=== PATIENT | female | born 1985 | race Caucasian/White ===

== ENCOUNTER 2018-01-15 11:17 | Emergency (ER) | payer OTHER ==
[2018-01-15] MEDS ORDERED: SODIUM CHLORIDE 0.9% 500 ML IV STA (12:12)
--- NOTE | 2018-01-15 12:23 | ED ---
Abdominal Pain HPI - General Chief Complaint: Abdominal Pain Stated Complaint: Abd Pain, Poss Time Seen by Provider: 01/15/18 11:56 Source: patient, RN notes reviewed Mode of arrival: ambulatory Limitations: no limitations - History of Present Illness Initial Comments: This a 32-year-old female presents emergency Department chief complaint of abdominal pain. She's been having some cramping over the last week or 2 which has been worsening and she states that she occasionally has sharp stabbing pain. Patient states that nothing seems to exacerbate her symptoms or improvement. Patient denies any known fever, chills, flank pain, dysuria. She does have some urinary frequency. Denies any vaginal bleeding or vaginal discharge. She is concerned about possible as she is late on her menstrual cycle and has not taken a test at home. She states she does not use any control other than using Plan B. Patient has had 3 sections in the past and a prior cholecystectomy. Patient also complains of right-sided neck pain after she awoke this morning states it hurts when she twists or bends states he feels in the muscle. She states she was concern as she ran Internet that this could be related to internal bleeding in which brought her to the emergency department. - Related Data Previous Rx's Medication Instructions Recorded Cephalexin [Keflex] 500 mg PO Q6HR #20 cap 01/15/18 Allergies Allergy/AdvReac Type Severity Reaction Status Date / Time No Known Allergies Allergy Verified 01/15/18 11:55 Review of Systems ROS Statement: Those systems with pertinent positive or pertinent negative responses have been documented in the HPI. ROS Other: All systems not noted in ROS Statement are negative. Past Medical History Past Medical History: No Reported History Additional Past Medical History / Comment(s): CHOLECYSTITIS History of Any Multi-Drug Resistant Organisms: None Reported Past Surgical History: Section, Ear Surgery, Tonsillectomy Additional Past Surgical History / Comment(s): TUBES IN EARS Additional Past Anesthesia/Blood Transfusion Reaction / Comment(s): VOMITED WITH DEMEROL Past Psychological History: No Psychological Hx Reported Smoking Status: Current every day smoker Past Alcohol Use History: None Reported Past Drug Use History: None Reported - Past Family History Mother Family Medical History: No Reported History General Exam Limitations: no limitations General appearance: alert, in no apparent distress Head exam: Present: atraumatic, normocephalic, normal inspection ENT exam: Present: normal exam, normal oropharynx, mucous membranes moist, TM's normal bilaterally Neck exam: Present: normal inspection, tenderness (Mild over the right trapezius ), full ROM. Absent: meningismus, lymphadenopathy Respiratory exam: Present: normal lung sounds bilaterally. Absent: respiratory distress, wheezes, rales, rhonchi, stridor Cardiovascular Exam: Present: regular rate, normal rhythm, normal heart sounds. Absent: systolic murmur, diastolic murmur, rubs, gallop, clicks GI/Abdominal exam: Present: soft, tenderness (Mild to moderate suprapubic), normal bowel sounds. Absent: distended, guarding, rebound, rigid Back exam: Absent: CVA tenderness (R), CVA tenderness (L) Skin exam: Present: warm, dry, intact, normal color. Absent: rash Course Vital Signs 01/15/18 01/15/18 11:49 13:15 Temperature 98.4 F Pulse Rate 83 Respiratory 18 16 Rate Blood Pressure 121/40 O2 Sat by Pulse 98 Oximetry Medical Decision Making - Medical Decision Making 32-year-old female presented for lower abdominal pain which has been intermittent cramping. Patient's found to be this time. Patient did have ultrasound which shows a gestational sac consider blood open. Patient's hCG is 69,000 this time. Patient has no vaginal bleeding or vaginal discharge. Patient follow-up with [facility] outpatient. She does have evidence of urinary tract infection was cultured and she'll be started on Keflex. - Lab Data Result diagrams: 01/15/18 12:45 01/15/18 12:45 Lab Results 01/15/18 01/15/18 01/15/18 Range/Units 12:30 12:30 12:45 WBC (3.8-10.6) k/uL RBC (3.80-5.40) m/uL Hgb (11.4-16.0) gm/dL Hct (34.0-46.0) % MCV (80.0-100.0) fL MCH (25.0-35.0) pg MCHC (31.0-37.0) g/dL RDW (11.5-15.5) % Plt Count (150-450) k/uL Neutrophils % % Lymphocytes % % Monocytes % % Eosinophils % % Basophils % % Neutrophils # (1.3-7.7) k/uL Lymphocytes # (1.0-4.8) k/uL Monocytes # (0-1.0) k/uL Eosinophils # (0-0.7) k/uL Basophils # (0-0.2) k/uL Sodium 136 L (137-145) mmol/L Potassium 4.0 (3.5-5.1) mmol/L Chloride 104 (98-107) mmol/L Carbon Dioxide 24 (22-30) mmol/L Anion Gap 8 mmol/L BUN 9 (7-17) mg/dL Creatinine 0.50 L (0.52-1.04) mg/dL Est GFR (CKD-EPI)AfAm >90 (>60 ml/min/1.73 sqM) Est GFR (CKD-EPI)NonAf >90 (>60 ml/min/1.73 sqM) Glucose 80 (74-99) mg/dL Calcium 9.4 (8.4-10.2) mg/dL Total Bilirubin 0.6 (0.2-1.3) mg/dL AST 18 (14-36) U/L ALT 31 (9-52) U/L Alkaline Phosphatase 46 (38-126) U/L Total Protein 6.8 (6.3-8.2) g/dL Albumin 4.2 (3.5-5.0) g/dL Amylase 48 (30-110) U/L Lipase 57 (23-300) U/L HCG, Quant mIU/mL Urine Color Yellow Urine Appearance Clear (Clear) Urine pH 7.0 (5.0-8.0) Ur Specific [place] 1.019 (1.001-1.035) Urine Protein Negative (Negative) Urine Glucose (UA) Negative (Negative) Urine Ketones 1+ H (Negative) Urine Blood Negative (Negative) Urine Nitrite Positive H (Negative) Urine Bilirubin Negative (Negative) Urine Urobilinogen <2.0 (<2.0) mg/dL Ur Leukocyte Esterase Trace H (Negative) Urine RBC 1 (0-5) /hpf Urine WBC 15 H (0-5) /hpf Ur Squamous Epith Cells 3 (0-4) /hpf Amorphous Sediment Occasional H (None) /hpf Hyaline Casts 1 (0-2) /lpf Urine Mucus Few H (None) /hpf Urine HCG, Qual Detected (Not Detectd) 01/15/18 01/15/18 Range/Units 12:45 12:45 WBC 5.9 (3.8-10.6) k/uL RBC 4.47 (3.80-5.40) m/uL Hgb 13.3 (11.4-16.0) gm/dL Hct 39.5 (34.0-46.0) % MCV 88.4 (80.0-100.0) fL MCH 29.7 (25.0-35.0) pg MCHC 33.6 (31.0-37.0) g/dL RDW 12.7 (11.5-15.5) % Plt Count 245 (150-450) k/uL Neutrophils % 69 % Lymphocytes % 19 % Monocytes % 8 % Eosinophils % 2 % Basophils % 0 % Neutrophils # 4.1 (1.3-7.7) k/uL Lymphocytes # 1.1 (1.0-4.8) k/uL Monocytes # 0.5 (0-1.0) k/uL Eosinophils # 0.1 (0-0.7) k/uL Basophils # 0.0 (0-0.2) k/uL Sodium (137-145) mmol/L Potassium (3.5-5.1) mmol/L Chloride (98-107) mmol/L Carbon Dioxide (22-30) mmol/L Anion Gap mmol/L BUN (7-17) mg/dL Creatinine (0.52-1.04) mg/dL Est GFR (CKD-EPI)AfAm (>60 ml/min/1.73 sqM) Est GFR (CKD-EPI)NonAf (>60 ml/min/1.73 sqM) Glucose (74-99) mg/dL Calcium (8.4-10.2) mg/dL Total Bilirubin (0.2-1.3) mg/dL AST (14-36) U/L ALT (9-52) U/L Alkaline Phosphatase (38-126) U/L Total Protein (6.3-8.2) g/dL Albumin (3.5-5.0) g/dL Amylase (30-110) U/L Lipase (23-300) U/L HCG, Quant 87237.5 mIU/mL Urine Color Urine Appearance (Clear) Urine pH (5.0-8.0) Ur Specific [place] (1.001-1.035) Urine Protein (Negative) Urine Glucose (UA) (Negative) Urine Ketones (Negative) Urine Blood (Negative) Urine Nitrite (Negative) Urine Bilirubin (Negative) Urine Urobilinogen (<2.0) mg/dL Ur Leukocyte Esterase (Negative) Urine RBC (0-5) /hpf Urine WBC (0-5) /hpf Ur Squamous Epith Cells (0-4) /hpf Amorphous Sediment (None) /hpf Hyaline Casts (0-2) /lpf Urine Mucus (None) /hpf Urine HCG, Qual (Not Detectd) Disposition Clinical Impression: Abdominal pain, , Blighted ovum, UTI (urinary tract infection) Disposition: HOME SELF-CARE Condition: Stable Instructions: Miscarriage (ED) Additional Instructions: Please return to the Emergency Department if symptoms worsen or any other concerns. Prescriptions: Cephalexin [Keflex] 500 mg PO Q6HR #20 cap Is patient prescribed a controlled substance at d/c from ED?: No Referrals: None,Stated [Primary Care Provider] - 1-2 days Time of Disposition: 14:48
[2018-01-15 13:06] LABS: Basophils % (A) 0 %; Eosinophils # (A) 0.1 k/uL (0-0.7); Eosinophils % (A) 2 %; HCT 39.5 % (34.0-46.0); HGB 13.3 gm/dL (11.4-16.0); Lymphocytes # (A) 1.1 k/uL (1.0-4.8); Lymphocytes % (A) 19 %; MCH 29.7 pg (25.0-35.0); MCHC 33.6 g/dL (31.0-37.0); MCV 88.4 fL (80.0-100.0); Mean Platelet Volume 6.8; Monocytes # (A) 0.5 k/uL (0-1.0); Monocytes % (A) 8 %; Neutrophils # (A) 4.1 k/uL (1.3-7.7); Neutrophils % (A) 69 %; Platelet Count 245 k/uL (150-450); RBC 4.47 m/uL (3.80-5.40); RDW 12.7 % (11.5-15.5); WBC 5.9 k/uL (3.8-10.6)
[2018-01-15 13:12] LABS: Amorphous Sediment,Urine Occasional /hpf; Appearance,Urine Clear (Clear); Bilirubin,Urine Negative (Negative); Blood,Urine Negative (Negative); Color,Urine Yellow; Glucose,Urine (UA) Negative (Negative); Hyaline Casts,Urine 1 /lpf (0-2); Ketones,Urine 1+ (Negative); Leukocyte Esterase,Urine Trace (Negative); Mucus,Urine Few /hpf; Nitrite,Urine Positive (Negative); Protein,Urine Negative (Negative); RBC,Urine 1 /hpf (0-5); Specific Gravity,Urine 1.019 (1.001-1.035); Squamous Epithelial Cell,Urine 3 /hpf (0-4); Urobilinogen,Urine <2.0 mg/dL (<2.0); WBC,Urine 15 /hpf (0-5)
[2018-01-15 13:16] VITALS: RESP 16
[2018-01-15 13:41] LABS: ALT 31 U/L (9-52); AST 18 U/L (14-36); Albumin 4.2 g/dL (3.5-5.0); Alkaline Phosphatase 46 U/L (38-126); Amylase 48 U/L (30-110); Anion Gap 8 mmol/L; Blood Urea Nitrogen 9 mg/dL (7-17); Calcium 9.4 mg/dL (8.4-10.2); Carbon Dioxide 24 mmol/L (22-30); Chloride 104 mmol/L (98-107); Glucose 80 mg/dL (74-99); Lipase 57 U/L (23-300); Sodium 136 mmol/L (137-145); Total Bilirubin 0.6 mg/dL (0.2-1.3); Total Protein 6.8 g/dL (6.3-8.2)
--- NOTE | 2018-01-15 14:33 | US ---
EXAMINATION TYPE: Transabdominal DATE OF EXAM: 10/04/17 COMPARISON: NONE CLINICAL HISTORY: Pain. Hx of molar . RLQ pain. Cramping. EXAM PERFORMED: Transvaginal (TV) and Transabdominal (TA) EXAM MEASUREMENTS: GESTATIONAL AGE / DATING Dates by LMP: (7 weeks/4 days) EDC: 08/30/2018 Dates by Current Scan : ( 7 weeks/0 days) EDC: 09/03/2018 MATERNAL ANATOMY Uterus: 9.7 x 6.4 x 6.0 cm Right Ovary: 3.0 x 1.5 x 1.6 cm Left Ovary: 2.8 x 1.2 x 1.0 cm Post CDS / Adnexa: free fluid Presence of free fluid: no Presence of corpus luteal cyst: right ovarian lesion - 1.7 x 1.1 x 1.5 cm Presence of subchorionic bleed: in MIGDALIA adjacent to GS- 0.8 x 0.8 x 0.4 cm GESTATION / SURVEY MSD: 2.4 (7 weeks/0 days) Date of LMP: 11/23/2017, Beta HcG (if available): Not available at this time Intrauterine GS seen. No YS or CRL visualized. Possible subchorionic bleed seen. IMPRESSION: There is an empty gestational sac noted. Difficult to exclude small subchorionic hemorrhage. Consider blighted ovum, recommend [employer] consult.
[2018-01-15 15:00] VITALS: BP 117/66; PULSE 74; TEMP 97.6
== END 2018-01-15 15:05 | disposition home or self-care (01) ==
LOC: EC 11:17
DX: O02.0 Blighted ovum and nonhydatidiform mole (principal); O23.41 Unspecified infection of urinary tract in pregnancy, first trimester; O26.891 Other specified pregnancy related conditions, first trimester; R10.9 Unspecified abdominal pain; O99.331 Smoking (tobacco) complicating pregnancy, first trimester; F17.200 Nicotine dependence, unspecified, uncomplicated; Z3A.01 Less than 8 weeks gestation of pregnancy
CPT/HCPCS: 36415; 76801; 76817; 80053; 81001; 81025; 82150; 83690; 84702; 85025; 96360; 96361; 99284

== ENCOUNTER 2018-06-05 19:56 | Emergency (ER) | payer OTHER ==
[2018-06-05 20:19] VITALS: TEMP 98.4
[2018-06-05 21:36] LABS: Basophils % (A) 0 %; Eosinophils # (A) 0.2 k/uL (0-0.7); Eosinophils % (A) 3 %; HCT 39.9 % (34.0-46.0); HGB 12.8 gm/dL (11.4-16.0); Lymphocytes % (A) 16 %; MCH 28.7 pg (25.0-35.0); MCHC 32.1 g/dL (31.0-37.0); MCV 89.3 fL (80.0-100.0); Monocytes # (A) 0.4 k/uL (0-1.0); Monocytes % (A) 7 %; Neutrophils # (A) 4.4 k/uL (1.3-7.7); Neutrophils % (A) 72 %; Platelet Count 237 k/uL (150-450); RBC 4.47 m/uL (3.80-5.40); RDW 13.2 % (11.5-15.5)
[2018-06-05 21:40] LABS: Appearance,Urine Clear (Clear); Bilirubin,Urine Negative (Negative); Blood,Urine Moderate (Negative); Color,Urine Yellow; Glucose,Urine (UA) Negative (Negative); Hyaline Casts,Urine 1 /lpf (0-2); Ketones,Urine Negative (Negative); Leukocyte Esterase,Urine Moderate (Negative); Mucus,Urine Occasional /hpf; Nitrite,Urine Negative (Negative); Protein,Urine Trace (Negative); RBC,Urine >182 /hpf (0-5); Specific Gravity,Urine 1.024 (1.001-1.035); Squamous Epithelial Cell,Urine 1 /hpf (0-4)
[2018-06-05 21:46] LABS: ALT 24 U/L (9-52); AST 15 U/L (14-36); Alkaline Phosphatase 57 U/L (38-126); Anion Gap 9 mmol/L; Blood Urea Nitrogen 15 mg/dL (7-17); Carbon Dioxide 25 mmol/L (22-30); Chloride 108 mmol/L (98-107); Glucose 80 mg/dL (74-99); Potassium 4.2 mmol/L (3.5-5.1); Sodium 142 mmol/L (137-145); Total Bilirubin 0.2 mg/dL (0.2-1.3); Total Protein 6.8 g/dL (6.3-8.2)
[2018-06-05] MEDS ORDERED: CEPHALEXIN 500MG STARTER PACK 4 CAP BTL PO STA (22:04)
--- NOTE | 2018-06-05 22:04 | ED ---
Female Urogenital HPI - General Chief complaint: Vaginal Bleeding Stated complaint: blighted ovum Time Seen by Provider: 06/05/18 20:43 Source: patient Mode of arrival: ambulatory Limitations: no limitations - History of Present Illness Initial comments: 33yo female with no PMH presenting today for cc of urgency, frequency and dysuria. Pt states that these symptoms began yesterday, she felt as though she had a UTI as it was indentical to when she has had one in the past. Pt denies flank/back pain, nausea, vomiting,fever, chills. Pt states she did notice she had blood/small clots in toilet yesterday which she thought were fromher urtehtra however she started her menses today and is now unsure if it was her period that had causes the blood the day prior. REmainder of ROS (-) pt denies abdominal pain. Admits to mild pelvic cramping that she states is consistent with normal menstrual symtptoms. Pt concerned about UTI, presented for evaluation. Upon arrival pt afebrile, well appearing. Last Menstrual Period: 06/05/18 - Related Data Previous Rx's Medication Instructions Recorded Cephalexin [Keflex] 500 mg PO Q12HR 5 Days #10 cap 06/05/18 Allergies Allergy/AdvReac Type Severity Reaction Status Date / Time No Known Allergies Allergy Verified 06/05/18 21:28 Review of Systems ROS Statement: Those systems with pertinent positive or pertinent negative responses have been documented in the HPI. ROS Other: All systems not noted in ROS Statement are negative. Constitutional: Denies: fever, chills ENT: Denies: ear pain, throat pain Respiratory: Denies: cough, dyspnea, wheezes Cardiovascular: Denies: chest pain Gastrointestinal: Denies: abdominal pain, nausea, vomiting, diarrhea, constipation, hematochezia Genitourinary: Reports: urgency, dysuria, frequency, hematuria. Denies: discharge Musculoskeletal: Denies: back pain Skin: Denies: rash Neurological: Denies: headache, weakness, confusion Past Medical History Past Medical History: No Reported History Additional Past Medical History / Comment(s): CHOLECYSTITIS History of Any Multi-Drug Resistant Organisms: None Reported Past Surgical History: Section, Ear Surgery, Tonsillectomy Additional Past Surgical History / Comment(s): TUBES IN EARS Additional Past Anesthesia/Blood Transfusion Reaction / Comment(s): VOMITED WITH DEMEROL Past Psychological History: No Psychological Hx Reported Smoking Status: Current every day smoker Past Alcohol Use History: None Reported Past Drug Use History: None Reported - Past Family History Mother Family Medical History: No Reported History General Exam - General Exam Comments Initial Comments: General: The patient is awake and alert, in no distress, and does not appear acutely ill. Eye: Pupils are equal, round and reactive to light, extra-ocular movements are intact. No nystagmus. There is normal conjunctiva bilaterally. No signs of icterus. Ears, nose, mouth and throat: There are moist mucous membranes and no oral lesions. Neck: The neck is supple, there is no tenderness or JVD. Cardiovascular: There is a regular rate and rhythm. No murmur, rub or gallop is appreciated. Respiratory: Lungs are clear to auscultation, respirations are non-labored, breath sounds are equal. No wheezes, stridor, rales, or rhonchi. Gastrointestinal: Soft, non-distended, non-tender abdomen without masses or organomegaly noted. There is no rebound or guarding present. No CVA tenderness. Bowel sounds are unremarkable.No pain to palpation of superior bladder margin. Musculoskeletal: Normal ROM, no tenderness. Strength 5/5. Sensation intact. Pulses equal bilaterally 2+. Neurological: A&O x 3. CN II-XII intact, There are no obvious motor or sensory deficits. Coordination appears grossly intact. Speech is normal. Skin: Skin is warm and dry and no rashes or lesions are noted. Psychiatric: Cooperative, appropriate mood & affect, normal judgment. Limitations: no limitations Course Vital Signs 06/05/18 06/05/18 20:15 22:13 Temperature 98.4 F Pulse Rate 104 H 91 Respiratory 18 16 Rate Blood Pressure 112/74 107/66 O2 Sat by Pulse 100 100 Oximetry Medical Decision Making - Medical Decision Making Pt presenting with urinary symptoms. No PE findings or hx concerning for pyelonephritis. Pt denies history of stone, denies flank or back pain. UA revealed >182 RBC however pt currently menstruating. Pt will be treated for UTI. Keflex BID x 5 days. Pt agreeable with plan. Pt discharged in stable condition after discussing case with Dr. Keith. All reutrn parameters discussed with patient, who verbalized understanding. Pt verbalized happiness with discharge and treatment. - Lab Data Result diagrams: 06/05/18 21:11 06/05/18 21:11 Lab Results 06/05/18 06/05/18 06/05/18 Range/Units 21:11 21:11 21:11 WBC 6.0 (3.8-10.6) k/uL RBC 4.47 (3.80-5.40) m/uL Hgb 12.8 (11.4-16.0) gm/dL Hct 39.9 (34.0-46.0) % MCV 89.3 (80.0-100.0) fL MCH 28.7 (25.0-35.0) pg MCHC 32.1 (31.0-37.0) g/dL RDW 13.2 (11.5-15.5) % Plt Count 237 (150-450) k/uL Neutrophils % 72 % Lymphocytes % 16 % Monocytes % 7 % Eosinophils % 3 % Basophils % 0 % Neutrophils # 4.4 (1.3-7.7) k/uL Lymphocytes # 1.0 (1.0-4.8) k/uL Monocytes # 0.4 (0-1.0) k/uL Eosinophils # 0.2 (0-0.7) k/uL Basophils # 0.0 (0-0.2) k/uL Sodium 142 (137-145) mmol/L Potassium 4.2 (3.5-5.1) mmol/L Chloride 108 H (98-107) mmol/L Carbon Dioxide 25 (22-30) mmol/L Anion Gap 9 mmol/L BUN 15 (7-17) mg/dL Creatinine 0.61 (0.52-1.04) mg/dL Est GFR (CKD-EPI)AfAm >90 (>60 ml/min/1.73 sqM) Est GFR (CKD-EPI)NonAf >90 (>60 ml/min/1.73 sqM) Glucose 80 (74-99) mg/dL Calcium 9.0 (8.4-10.2) mg/dL Total Bilirubin 0.2 (0.2-1.3) mg/dL AST 15 (14-36) U/L ALT 24 (9-52) U/L Alkaline Phosphatase 57 (38-126) U/L Total Protein 6.8 (6.3-8.2) g/dL Albumin 4.0 (3.5-5.0) g/dL Urine Color Urine Appearance (Clear) Urine pH (5.0-8.0) Ur Specific [place] (1.001-1.035) Urine Protein (Negative) Urine Glucose (UA) (Negative) Urine Ketones (Negative) Urine Blood (Negative) Urine Nitrite (Negative) Urine Bilirubin (Negative) Urine Urobilinogen (<2.0) mg/dL Ur Leukocyte Esterase (Negative) Urine RBC (0-5) /hpf Urine WBC (0-5) /hpf Ur Squamous Epith Cells (0-4) /hpf Hyaline Casts (0-2) /lpf Urine Mucus (None) /hpf Urine HCG, Qual Not Detected (Not Detectd) 06/05/18 Range/Units 21:11 WBC (3.8-10.6) k/uL RBC (3.80-5.40) m/uL Hgb (11.4-16.0) gm/dL Hct (34.0-46.0) % MCV (80.0-100.0) fL MCH (25.0-35.0) pg MCHC (31.0-37.0) g/dL RDW (11.5-15.5) % Plt Count (150-450) k/uL Neutrophils % % Lymphocytes % % Monocytes % % Eosinophils % % Basophils % % Neutrophils # (1.3-7.7) k/uL Lymphocytes # (1.0-4.8) k/uL Monocytes # (0-1.0) k/uL Eosinophils # (0-0.7) k/uL Basophils # (0-0.2) k/uL Sodium (137-145) mmol/L Potassium (3.5-5.1) mmol/L Chloride (98-107) mmol/L Carbon Dioxide (22-30) mmol/L Anion Gap mmol/L BUN (7-17) mg/dL Creatinine (0.52-1.04) mg/dL Est GFR (CKD-EPI)AfAm (>60 ml/min/1.73 sqM) Est GFR (CKD-EPI)NonAf (>60 ml/min/1.73 sqM) Glucose (74-99) mg/dL Calcium (8.4-10.2) mg/dL Total Bilirubin (0.2-1.3) mg/dL AST (14-36) U/L ALT (9-52) U/L Alkaline Phosphatase (38-126) U/L Total Protein (6.3-8.2) g/dL Albumin (3.5-5.0) g/dL Urine Color Yellow Urine Appearance Clear (Clear) Urine pH 6.0 (5.0-8.0) Ur Specific [place] 1.024 (1.001-1.035) Urine Protein Trace H (Negative) Urine Glucose (UA) Negative (Negative) Urine Ketones Negative (Negative) Urine Blood Moderate H (Negative) Urine Nitrite Negative (Negative) Urine Bilirubin Negative (Negative) Urine Urobilinogen 2.0 (<2.0) mg/dL Ur Leukocyte Esterase Moderate H (Negative) Urine RBC >182 H (0-5) /hpf Urine WBC 22 H (0-5) /hpf Ur Squamous Epith Cells 1 (0-4) /hpf Hyaline Casts 1 (0-2) /lpf Urine Mucus Occasional H (None) /hpf Urine HCG, Qual (Not Detectd) Disposition Clinical Impression: UTI (urinary tract infection), Menstruation Disposition: HOME SELF-CARE Condition: Good Instructions: Urinary Tract Infection in Women (ED) Additional Instructions: Please use medication as discussed. Please follow-up with family doctor in the next 2 days.. Please return to emergency room if the symptoms increase or worsen or for any other concerns. Prescriptions: Cephalexin [Keflex] 500 mg PO Q12HR 5 Days #10 cap Is patient prescribed a controlled substance at d/c from ED?: No Referrals: None,Stated [Primary Care Provider] - 1-2 days [facility] [NON-STAFF] - 1-2 days Time of Disposition: 22:03
[2018-06-05 22:14] VITALS: BP 107/66; PULSE 91; RESP 16
== END 2018-06-05 22:14 | disposition home or self-care (01) ==
LOC: EC 19:56
DX: N39.0 Urinary tract infection, site not specified (principal); R10.2 Pelvic and perineal pain; F17.200 Nicotine dependence, unspecified, uncomplicated
CPT/HCPCS: 36415; 80053; 81001; 81025; 85025; 87086; 99284

== ENCOUNTER 2019-12-17 13:06 | Emergency (ER) | payer OTHER ==
[2019-12-17 13:20] VITALS: RESP 18
--- NOTE | 2019-12-17 14:36 | US ---
EXAMINATION TYPE: Transabdominal DATE OF EXAM: 12/17/2019 2:16 PM COMPARISON: NONE CLINICAL HISTORY: pain. EXAM PERFORMED: Transabdominal (TA) EXAM MEASUREMENTS: GESTATIONAL AGE / DATING Physician Established: Not yet established Dates by LMP: unknown Dates by First Scan: No previous this is first scan Dates by Current Scan for: Unable to date by today's study MATERNAL ANATOMY Uterus: 8.5 x 5.1 x 5.4cm Right Ovary: 2.9 x 1.3 x 1.6cm Left Ovary: 3.0 x 2.0 x 2.1cm Post CDS / Adnexa: wnl GESTATION / SURVEY IUP: No IUP seen at this time Date of LMP: unknown Beta HcG (if available): Not available at this time IMPRESSION: No intrauterine is identified. Endometrial stripe thickness is increased. No evident adnexa l mass to suggest ectopic , correlate clinically.
[2019-12-17 14:37] LABS: Basophils % (A) 1 %; Eosinophils # (A) 0.1 k/uL (0-0.7); Eosinophils % (A) 3 %; HCT 41.5 % (34.0-46.0); HGB 13.1 gm/dL (11.4-16.0); Lymphocytes # (A) 1.4 k/uL (1.0-4.8); Lymphocytes % (A) 29 %; MCH 29.2 pg (25.0-35.0); MCHC 31.7 g/dL (31.0-37.0); MCV 92.1 fL (80.0-100.0); Mean Platelet Volume 7.4; Monocytes # (A) 0.5 k/uL (0-1.0); Monocytes % (A) 9 %; Neutrophils # (A) 2.8 k/uL (1.3-7.7); Neutrophils % (A) 57 %; Platelet Count 240 k/uL (150-450); RDW 13.1 % (11.5-15.5)
[2019-12-17 15:02] LABS: ALT 15 U/L (4-34); AST 20 U/L (14-36); African American GFR (CKD) >90 (>60 ml/min/1.73 sqM); Albumin 4.1 g/dL (3.5-5.0); Alkaline Phosphatase 48 U/L (38-126); Anion Gap 6 mmol/L; Blood Urea Nitrogen 15 mg/dL (7-17); Calcium 8.9 mg/dL (8.4-10.2); Carbon Dioxide 24 mmol/L (22-30); Chloride 108 mmol/L (98-107); Glucose 79 mg/dL (74-99); Non-African American GFR(CKD) >90 (>60 ml/min/1.73 sqM); Potassium 4.4 mmol/L (3.5-5.1); Sodium 138 mmol/L (137-145); Total Bilirubin 0.3 mg/dL (0.2-1.3)
[2019-12-17 15:13] LABS: HCG,Quantitative Serum 365.5 mIU/mL
--- NOTE | 2019-12-17 15:24 | ED ---
Female Urogenital HPI - General Chief complaint: Vaginal Bleeding Stated complaint: /spotting Time Seen by Provider: 12/17/19 13:23 Source: patient Mode of arrival: ambulatory Limitations: no limitations - History of Present Illness Initial comments: , with one blighted ovum, and one molar presents today for chief complaint of positive test and vaginal bleeding. Patient states a few days ago she had a positive test she states her last period was 10/08/2019. patient denies pain but admits to waking up with bright red blood in the toilet/underwear. Denies lightheadedness, heavy bleeding, vaginal discharge or concern for STD. Patietn denies fevers, back pain, or urinary symptoms. Patient has no additional complaints. She states he last was 11 years ago and she has no current established OBGYN care. Patient appears well in no distress upon arrival. Last Menstrual Period: 10/08/19 - Related Data Previous Rx's Medication Instructions Recorded Cephalexin [Keflex] 500 mg PO Q12HR 5 Days #10 cap 06/05/18 Cephalexin [Keflex] 500 mg PO Q12HR 5 Days #10 cap 12/17/19 Allergies Allergy/AdvReac Type Severity Reaction Status Date / Time No Known Allergies Allergy Verified 12/17/19 13:20 Review of Systems ROS Statement: Those systems with pertinent positive or pertinent negative responses have been documented in the HPI. ROS Other: All systems not noted in ROS Statement are negative. Past Medical History Past Medical History: No Reported History Additional Past Medical History / Comment(s): CHOLECYSTITIS History of Any Multi-Drug Resistant Organisms: None Reported Past Surgical History: Section, Ear Surgery, Tonsillectomy Additional Past Surgical History / Comment(s): TUBES IN EARS Additional Past Anesthesia/Blood Transfusion Reaction / Comment(s): VOMITED WITH DEMEROL Past Psychological History: No Psychological Hx Reported Smoking Status: Current every day smoker Past Alcohol Use History: None Reported Past Drug Use History: None Reported - Past Family History Mother Family Medical History: No Reported History General Exam - General Exam Comments Initial Comments: General: The patient is awake and alert, in no distress, and does not appear acutely ill. Eye: Pupils are equal, round and reactive to light, extra-ocular movements are intact. No nystagmus. There is normal conjunctiva bilaterally. No signs of icterus. Cardiovascular: There is a regular rate and rhythm. No murmur, rub or gallop is appreciated. Respiratory: Lungs are clear to auscultation, respirations are non-labored, breath sounds are equal. No wheezes, stridor, rales, or rhonchi. Gastrointestinal: Soft, non-distended, non-tender abdomen without masses or organomegaly noted. There is no rebound or guarding present. Pelvic: No adnexal/cervical motion tenderness, scant amount of dark blood in vault, no heavy bright read bleeding. Os closed, no cervical lesions noted. Musculoskeletal: Normal ROM, no tenderness. Strength 5/5. Sensation intact. Pulses equal bilaterally 2+. Neurological: A&O x 3. CN II-XII intact grossly, There are no obvious motor or sensory deficits. Coordination appears grossly intact. Speech is normal. Skin: Skin is warm and dry and no rashes or lesions are noted. Psychiatric: Cooperative, appropriate mood & affect, normal judgment. Limitations: no limitations Course Vital Signs 12/17/19 13:16 Temperature 98.2 F Pulse Rate 74 Respiratory 18 Rate Blood Pressure 116/78 O2 Sat by Pulse 98 Oximetry Medical Decision Making - Medical Decision Making 34-year-old male presenting today for chief complaint of bleeding with positive Prensky test. HCG 365. Scant amount of blood in vault. A+ ABO/RH. Patient US no IUP nor signs of ectopic . No pain on exam. Patient case discussed in detail with Dr Mendoza who recommended calling OBGYN office to set up appointment/ensure f/u and discharge patient with repeat HCG and return para meters. Patient is agreeable to discharge and aware of importance of f/u and return parameters. call center rn OB office was contacted--they are aware of patient and will await phone call to gather patient information and ensure proper f/u with Dr. Hilton. Patient discharged appearing well aware of ddx. - Lab Data Result diagrams: 12/17/19 13:43 12/17/19 13:43 Lab Results 12/17/19 12/17/19 12/17/19 Range/Units 13:43 13:43 13:43 WBC 5.0 (3.8-10.6) k/uL RBC 4.50 (3.80-5.40) m/uL Hgb 13.1 (11.4-16.0) gm/dL Hct 41.5 (34.0-46.0) % MCV 92.1 (80.0-100.0) fL MCH 29.2 (25.0-35.0) pg MCHC 31.7 (31.0-37.0) g/dL RDW 13.1 (11.5-15.5) % Plt Count 240 (150-450) k/uL Neutrophils % 57 % Lymphocytes % 29 % Monocytes % 9 % Eosinophils % 3 % Basophils % 1 % Neutrophils # 2.8 (1.3-7.7) k/uL Lymphocytes # 1.4 (1.0-4.8) k/uL Monocytes # 0.5 (0-1.0) k/uL Eosinophils # 0.1 (0-0.7) k/uL Basophils # 0.0 (0-0.2) k/uL Sodium 138 (137-145) mmol/L Potassium 4.4 (3.5-5.1) mmol/L Chloride 108 H (98-107) mmol/L Carbon Dioxide 24 (22-30) mmol/L Anion Gap 6 mmol/L BUN 15 (7-17) mg/dL Creatinine 0.82 (0.52-1.04) mg/dL Est GFR (CKD-EPI)AfAm >90 (>60 ml/min/1.73 sqM) Est GFR (CKD-EPI)NonAf >90 (>60 ml/min/1.73 sqM) Glucose 79 (74-99) mg/dL Calcium 8.9 (8.4-10.2) mg/dL Total Bilirubin 0.3 (0.2-1.3) mg/dL AST 20 (14-36) U/L ALT 15 (4-34) U/L Alkaline Phosphatase 48 (38-126) U/L Total Protein 7.0 (6.3-8.2) g/dL Albumin 4.1 (3.5-5.0) g/dL HCG, Quant 365.5 mIU/mL Urine Color Urine Appearance (Clear) Urine pH (5.0-8.0) Ur Specific [place] (1.001-1.035) Urine Protein (Negative) Urine Glucose (UA) (Negative) Urine Ketones (Negative) Urine Blood (Negative) Urine Nitrite (Negative) Urine Bilirubin (Negative) Urine Urobilinogen (<2.0) mg/dL Ur Leukocyte Esterase (Negative) Urine RBC (0-5) /hpf Urine WBC (0-5) /hpf Ur Squamous Epith Cells (0-4) /hpf Urine Mucus (None) /hpf Blood Type A Positive Blood Type Recheck A Pos Bld Type Recheck Status No 12/17/19 Range/Units 13:43 WBC (3.8-10.6) k/uL RBC (3.80-5.40) m/uL Hgb (11.4-16.0) gm/dL Hct (34.0-46.0) % MCV (80.0-100.0) fL MCH (25.0-35.0) pg MCHC (31.0-37.0) g/dL RDW (11.5-15.5) % Plt Count (150-450) k/uL Neutrophils % % Lymphocytes % % Monocytes % % Eosinophils % % Basophils % % Neutrophils # (1.3-7.7) k/uL Lymphocytes # (1.0-4.8) k/uL Monocytes # (0-1.0) k/uL Eosinophils # (0-0.7) k/uL Basophils # (0-0.2) k/uL Sodium (137-145) mmol/L Potassium (3.5-5.1) mmol/L Chloride (98-107) mmol/L Carbon Dioxide (22-30) mmol/L Anion Gap mmol/L BUN (7-17) mg/dL Creatinine (0.52-1.04) mg/dL Est GFR (CKD-EPI)AfAm (>60 ml/min/1.73 sqM) Est GFR (CKD-EPI)NonAf (>60 ml/min/1.73 sqM) Glucose (74-99) mg/dL Calcium (8.4-10.2) mg/dL Total Bilirubin (0.2-1.3) mg/dL AST (14-36) U/L ALT (4-34) U/L Alkaline Phosphatase (38-126) U/L Total Protein (6.3-8.2) g/dL Albumin (3.5-5.0) g/dL HCG, Quant mIU/mL Urine Color Light Yellow Urine Appearance Clear (Clear) Urine pH 7.5 (5.0-8.0) Ur Specific [place] 1.018 (1.001-1.035) Urine Protein Trace H (Negative) Urine Glucose (UA) Negative (Negative) Urine Ketones Negative (Negative) Urine Blood Negative (Negative) Urine Nitrite Negative (Negative) Urine Bilirubin Negative (Negative) Urine Urobilinogen <2.0 (<2.0) mg/dL Ur Leukocyte Esterase Moderate H (Negative) Urine RBC 1 (0-5) /hpf Urine WBC 37 H (0-5) /hpf Ur Squamous Epith Cells <1 (0-4) /hpf Urine Mucus Rare H (None) /hpf Blood Type Blood Type Recheck Bld Type Recheck Status Disposition Clinical Impression: Bleeding in early , Urine WBC increased Disposition: HOME SELF-CARE Condition: Good Instructions (If sedation given, give patient instructions): Threatened Miscarriage (ED) Additional Instructions: Please use medication as discussed. Please follow-up with OBGYN in next week, repeat HCG in 2 days, repeat U/S in 1 week. Cannnot rule out developing ectopic, or molar as this time and follow-up and repeat laboratory studies are important. Please return to emergency room if the symptoms increase or worsen or for any other concerns-pain, increased bleeding, lightheadedness. Prescriptions: Cephalexin [Keflex] 500 mg PO Q12HR 5 Days #10 cap Is patient prescribed a controlled substance at d/c from ED?: No Referrals: None,Stated [Primary Care Provider] - 1-2 days Dane Hilton DO [Doctor of Osteopathic Medicine] - 1-2 days Time of Disposition: 15:24
[2019-12-17 15:36] LABS: Appearance,Urine Clear (Clear); Bilirubin,Urine Negative (Negative); Blood,Urine Negative (Negative); Color,Urine Light Yellow; Glucose,Urine (UA) Negative (Negative); Ketones,Urine Negative (Negative); Leukocyte Esterase,Urine Moderate (Negative); Mucus,Urine Rare /hpf; Nitrite,Urine Negative (Negative); PH, Urine 7.5 (5.0-8.0); Protein,Urine Trace (Negative); RBC,Urine 1 /hpf (0-5); Specific Gravity,Urine 1.018 (1.001-1.035); Squamous Epithelial Cell,Urine <1 /hpf (0-4); Urobilinogen,Urine <2.0 mg/dL (<2.0); WBC,Urine 37 /hpf (0-5)
[2019-12-17 16:13] VITALS: BP 113/88; PULSE 64; TEMP 98.6
[2019-12-19 10:34] LABS: C. trachomatis,PCR Negative (Neg,Equiv); Chlamydia trachomatis Source Vagina; N. gonorrhoeae,PCR Negative (Neg,Equiv); Neisseria Source Vagina
== END 2019-12-17 16:40 | disposition home or self-care (01) ==
LOC: EC 13:06
DX: O20.9 Hemorrhage in early pregnancy, unspecified (principal); O99.89 Other specified diseases and conditions complicating pregnancy, childbirth and the puerperium; R82.998 Other abnormal findings in urine; O99.330 Smoking (tobacco) complicating pregnancy, unspecified trimester; F17.200 Nicotine dependence, unspecified, uncomplicated; Z3A.00 Weeks of gestation of pregnancy not specified
CPT/HCPCS: 36415; 76801; 80053; 81001; 84702; 85025; 86900; 86901; 87070; 87086; 87491; 87591; 87808; 99284

== ENCOUNTER 2019-12-18 14:07 | Emergency (ER) | payer OTHER ==
[2019-12-18 14:13] VITALS: TEMP 97.9
--- NOTE | 2019-12-18 14:34 | ED ---
Female Urogenital HPI - General Chief complaint: Vaginal Bleeding Stated complaint: Revisit Vaginal Bleeding, Preg Time Seen by Provider: 12/18/19 14:17 Source: patient, RN notes reviewed, old records reviewed Mode of arrival: ambulatory Limitations: no limitations - History of Present Illness Initial comments: Bobbi is a 34-year-old female who presents restaurant today for worsening vaginal bleeding over the past day. She was diagnosed with concern for threatened miscarriage, hCG level was 350 yesterday. She was Rh+. Patient was also tested positive for Trichomonas yesterday and did report that she took the treatment of Flagyl. She denies any specific lateralizing abdominal pain. She does report some mild cramping today. She reports that she's been going through a 1 pads every couple hours. - Related Data Previous Rx's Medication Instructions Recorded Cephalexin [Keflex] 500 mg PO Q12HR 5 Days #10 cap 06/05/18 Cephalexin [Keflex] 500 mg PO Q12HR 5 Days #10 cap 12/17/19 Allergies Allergy/AdvReac Type Severity Reaction Status Date / Time No Known Allergies Allergy Verified 12/18/19 14:13 Review of Systems ROS Statement: Those systems with pertinent positive or pertinent negative responses have been documented in the HPI. ROS Other: All systems not noted in ROS Statement are negative. Past Medical History Past Medical History: No Reported History Additional Past Medical History / Comment(s): CHOLECYSTITIS History of Any Multi-Drug Resistant Organisms: None Reported Past Surgical History: Section, Ear Surgery, Tonsillectomy Additional Past Surgical History / Comment(s): TUBES IN EARS Additional Past Anesthesia/Blood Transfusion Reaction / Comment(s): VOMITED WITH DEMEROL Past Psychological History: No Psychological Hx Reported Smoking Status: Current every day smoker Past Alcohol Use History: None Reported Past Drug Use History: None Reported - Past Family History Mother Family Medical History: No Reported History General Exam - General Exam Comments Initial Comments: 34-year-old female. Alert and oriented 3. No distress. Limitations: no limitations General appearance: alert, in no apparent distress Head exam: Present: atraumatic, normocephalic, normal inspection Eye exam: Present: normal appearance, PERRL, EOMI. Absent: scleral icterus, conjunctival injection, periorbital swelling ENT exam: Present: normal exam, mucous membranes moist Neck exam: Present: normal inspection Respiratory exam: Present: normal lung sounds bilaterally Cardiovascular Exam: Present: regular rate, normal rhythm, normal heart sounds. Absent: systolic murmur, diastolic murmur, rubs, gallop, clicks GI/Abdominal exam: Present: soft, normal bowel sounds. Absent: distended, tenderness, guarding, rebound, rigid Extremities exam: Present: normal inspection, full ROM, normal capillary refill. Absent: tenderness, pedal edema, joint swelling, calf tenderness Back exam: Present: normal inspection Neurological exam: Present: alert, oriented X3, CN II-XII intact Psychiatric exam: Present: normal affect, normal mood Skin exam: Present: warm, dry, intact, normal color. Absent: rash Course Vital Signs 12/18/19 14:09 Temperature 97.9 F Pulse Rate 78 Respiratory 18 Rate Blood Pressure 111/78 O2 Sat by Pulse 100 Oximetry Medical Decision Making - Medical Decision Making 34-year-old female presents to return today with slightly heavier vaginal bleeding today. She is diagnosed with a threatened miscarriage yesterday. She had an hCG level of 365 yesterday. She is Rh+. She also was treated for Tricho monas yesterday took Flagyl. She is on Keflex for UTI. Patient at this time states that her bleeding has increased but she has no significant cramping. She does have an upcoming appointment with Dr. Crabtree who was on-call yesterday. Her hCG today has decreased 363. I did discuss this is concerning for miscarriage but she needs to have this followed up with again tomorrow at her outpatient labs. Patient is agreeable to this plan. She also is requesting a work note today. All questions were answered. - Lab Data Lab Results 12/18/19 Range/Units 14:42 HCG, Quant 363.0 mIU/mL Disposition Clinical Impression: Threatened miscarriage in early Disposition: HOME SELF-CARE Condition: Good Instructions (If sedation given, give patient instructions): Threatened Miscarriage (ED) Additional Instructions: Continue the Keflex that was prescribed yesterday. Repeat your blood hormone levels tomorrow and follow up with Dr. Crabtree. Return to the emergency department if any alarming signs or symptoms occur. Is patient prescribed a controlled substance at d/c from ED?: No Referrals: None,Stated [Primary Care Provider] - 1-2 days Time of Disposition: 15:48
[2019-12-18 16:06] VITALS: BP 109/74; PULSE 75; RESP 17
== END 2019-12-18 16:06 | disposition home or self-care (01) ==
LOC: EC 14:07
DX: O20.0 Threatened abortion (principal); N39.0 Urinary tract infection, site not specified; F17.200 Nicotine dependence, unspecified, uncomplicated; Z29.13 Encounter for prophylactic Rho(D) immune globulin
CPT/HCPCS: 36415; 84702; 99284

== ENCOUNTER → 2019-12-20 | Outpatient (CLI) | payer OTHER | END | disposition home or self-care (01) | LOC: LABWHC1 14:54 | PROVIDERS: ATTEND Obstetrics & Gynecology | DX: O20.0 Threatened abortion (principal) | CPT/HCPCS: 36415; 84702 ==

== ENCOUNTER 2019-12-21 09:37 | Emergency (ER) | payer OTHER ==
[2019-12-21 09:44] VITALS: TEMP 98.3
[2019-12-21] MEDS ORDERED: SODIUM CHLORIDE 0.9% 1,000 ML IV STA (09:45)
--- NOTE | 2019-12-21 10:00 | ED ---
Abdominal Pain HPI - General Chief Complaint: Abdominal Pain Stated Complaint: poss ectopic preg Time Seen by Provider: 12/21/19 09:45 Source: patient Mode of arrival: ambulatory Limitations: no limitations - History of Present Illness Initial Comments: 34yo female with previous molar and blighted ovum presenting for chief complaint of persistent vaginal bleeding and left sided pelvic/low back painl Patient states she has had left sided pelvic and low back pain. She states that it began today and she has been bleeding since 12/16. Patient states the bleeding is like a period, small clot today. Patient denies presyncope, syncopal episodes or extreme pain. Patient described as sharp/cramping in nature. Patient denies additional complaints. Upon arrival patient appears well no significant distress, VS within acceptable limits. - Related Data Previous Rx's Medication Instructions Recorded Cephalexin [Keflex] 500 mg PO Q12HR 5 Days #10 cap 12/17/19 Allergies Allergy/AdvReac Type Severity Reaction Status Date / Time No Known Allergies Allergy Verified 12/21/19 10:23 Review of Systems ROS Statement: Those systems with pertinent positive or pertinent negative responses have been documented in the HPI. ROS Other: All systems not noted in ROS Statement are negative. Past Medical History Past Medical History: No Reported History Additional Past Medical History / Comment(s): CHOLECYSTITIS History of Any Multi-Drug Resistant Organisms: None Reported Past Surgical History: Section, Cholecystectomy, Ear Surgery, Tonsillectomy Additional Past Surgical History / Comment(s): TUBES IN EARS Additional Past Anesthesia/Blood Transfusion Reaction / Comment(s): VOMITED WITH DEMEROL Past Psychological History: No Psychological Hx Reported Smoking Status: Current every day smoker Past Alcohol Use History: None Reported Past Drug Use History: None Reported - Past Family History Mother Family Medical History: No Reported History General Exam - General Exam Comments Initial Comments: General: The patient is awake and alert, in no distress, and does not appear acutely ill. Eye: Pupils are equal, round and reactive to light, extra-ocular movements are intact. No nystagmus. There is normal conjunctiva bilaterally. No signs of icterus. Cardiovascular: There is a regular rate and rhythm. No murmur, rub or gallop is appreciated. Respiratory: Lungs are clear to auscultation, respirations are non-labored, breath sounds are equal. No wheezes, stridor, rales, or rhonchi. Gastrointestinal: Soft, non-distended, mild LLQ abdominal tenderness to palpation remaining abdomen is nontender and is without masses or organomegaly noted. There is no rebound or guarding present. Pelvic: Mild amount of dark red blood in vault, os appears open. Some mild left sided adnexal tenderness. Musculoskeletal: Normal ROM, no tenderness. Strength 5/5. Sensation intact. Radial pulses equal bilaterally 2+. Neurological: A&O x 3. CN II-XII intact grossly, There are no obvious motor or sensory deficits. Coordination appears grossly intact. Speech is normal. Skin: Skin is warm and dry and no rashes or lesions are noted. Psychiatric: Cooperative, appropriate mood & affect, normal judgment. Limitations: no limitations Course Vital Signs 12/21/19 12/21/19 12/21/19 09:38 11:03 11:39 Temperature 98.3 F Pulse Rate 81 86 79 Respiratory 18 18 16 Rate Blood Pressure 124/71 100/62 111/77 O2 Sat by Pulse 99 98 100 Oximetry - Reevaluation(s) Reevaluation #1: 12/21/19 11:[address] Albarran reading body and impression of US, discussed pt VS, laboratory studies including HCG levels over the course of the past week and HgB--she recommended discharge with return for increasing pain. She feels the left ovarian lesion maybe cyst, vs resolving ectopic. Patient appears stable and will be discharge with strict return parameters and OB f/u, repeat HCG draw. Medical Decision Making - Medical Decision Making 34yo presenting for pelvic pain/bleeding in . Currently undergoing evaluation for ectopic . Patient hCG trending downward. Pain moderate, no severe pain. Patient US consistent. Very scant amount of free fluid in posterior cul de sac per Dr. Stiles whom i contacted to quantify the amount. I discussed case with guest relations coordinator OBGYN who recommends pain control and discharge with f/u next week in office, HCG on tuesday and immediate return for increasing pain, light headedness, increased bleeding or any other concerning new symptoms. Patient is agreeable to this care plan and discharge. Patient verbalized understanding of importance of return parameters. Dr. Vila is agreeable to this care plan and discharge at this time. - Lab Data Result diagrams: 12/21/19 09:50 12/21/19 09:50 Lab Results 12/21/19 12/21/19 12/21/19 Range/Units 09:50 09:50 09:50 WBC 5.8 (3.8-10.6) k/uL RBC 4.47 (3.80-5.40) m/uL Hgb 12.9 (11.4-16.0) gm/dL Hct 41.4 (34.0-46.0) % MCV 92.8 (80.0-100.0) fL MCH 28.8 (25.0-35.0) pg MCHC 31.0 (31.0-37.0) g/dL RDW 13.2 (11.5-15.5) % Plt Count 244 (150-450) k/uL Neutrophils % 57 % Lymphocytes % 28 % Monocytes % 9 % Eosinophils % 3 % Basophils % 1 % Neutrophils # 3.3 (1.3-7.7) k/uL Lymphocytes # 1.6 (1.0-4.8) k/uL Monocytes # 0.5 (0-1.0) k/uL Eosinophils # 0.2 (0-0.7) k/uL Basophils # 0.0 (0-0.2) k/uL Sodium 138 (137-145) mmol/L Potassium 4.3 (3.5-5.1) mmol/L Chloride 108 H (98-107) mmol/L Carbon Dioxide 24 (22-30) mmol/L Anion Gap 6 mmol/L BUN 12 (7-17) mg/dL Creatinine 0.51 L (0.52-1.04) mg/dL Est GFR (CKD-EPI)AfAm >90 (>60 ml/min/1.73 sqM) Est GFR (CKD-EPI)NonAf >90 (>60 ml/min/1.73 sqM) Glucose 76 (74-99) mg/dL Calcium 8.6 (8.4-10.2) mg/dL Total Bilirubin 0.3 (0.2-1.3) mg/dL AST 28 (14-36) U/L ALT 24 (4-34) U/L Alkaline Phosphatase 50 (38-126) U/L Total Protein 6.9 (6.3-8.2) g/dL Albumin 3.9 (3.5-5.0) g/dL HCG, Quant 205.5 mIU/mL Urine Color Yellow Urine Appearance Clear (Clear) Urine pH 6.5 (5.0-8.0) Ur Specific [place] 1.026 (1.001-1.035) Urine Protein Trace H (Negative) Urine Glucose (UA) Negative (Negative) Urine Ketones Negative (Negative) Urine Blood Moderate H (Negative) Urine Nitrite Negative (Negative) Urine Bilirubin Negative (Negative) Urine Urobilinogen <2.0 (<2.0) mg/dL Ur Leukocyte Esterase Trace H (Negative) Urine RBC 118 H (0-5) /hpf Urine WBC 2 (0-5) /hpf Ur Squamous Epith Cells 1 (0-4) /hpf Urine Mucus Occasional H (None) /hpf Disposition Clinical Impression: Pelvic pain, Vaginal bleeding, Threatened miscarriage Disposition: HOME SELF-CARE Condition: Good Instructions (If sedation given, give patient instructions): Ectopic (DC), Threatened Miscarriage (ED) Additional Instructions: Please use medication as discussed. Please follow-up with Dr. Hilton in the next 2-3 days. Repeat HCG on Tuesday. Please return to emergency room if the symptoms increase or worsen or for any other concerns. Is patient prescribed a controlled substance at d/c from ED?: No Referrals: None,Stated [Primary Care Provider] - 1-2 days Dane Hilton DO [Doctor of Osteopathic Medicine] - 1-2 days Time of Disposition: 11:38
[2019-12-21 10:09] LABS: Basophils % (A) 1 %; Eosinophils # (A) 0.2 k/uL (0-0.7); Eosinophils % (A) 3 %; HCT 41.4 % (34.0-46.0); HGB 12.9 gm/dL (11.4-16.0); Lymphocytes # (A) 1.6 k/uL (1.0-4.8); Lymphocytes % (A) 28 %; MCH 28.8 pg (25.0-35.0); MCV 92.8 fL (80.0-100.0); Mean Platelet Volume 7.3; Monocytes # (A) 0.5 k/uL (0-1.0); Monocytes % (A) 9 %; Neutrophils # (A) 3.3 k/uL (1.3-7.7); Neutrophils % (A) 57 %; Platelet Count 244 k/uL (150-450); RBC 4.47 m/uL (3.80-5.40); RDW 13.2 % (11.5-15.5); WBC 5.8 k/uL (3.8-10.6)
[2019-12-21 10:21] LABS: ALT 24 U/L (4-34); AST 28 U/L (14-36); African American GFR (CKD) >90 (>60 ml/min/1.73 sqM); Albumin 3.9 g/dL (3.5-5.0); Alkaline Phosphatase 50 U/L (38-126); Anion Gap 6 mmol/L; Blood Urea Nitrogen 12 mg/dL (7-17); Calcium 8.6 mg/dL (8.4-10.2); Carbon Dioxide 24 mmol/L (22-30); Chloride 108 mmol/L (98-107); Glucose 76 mg/dL (74-99); Non-African American GFR(CKD) >90 (>60 ml/min/1.73 sqM); Potassium 4.3 mmol/L (3.5-5.1); Sodium 138 mmol/L (137-145); Total Bilirubin 0.3 mg/dL (0.2-1.3); Total Protein 6.9 g/dL (6.3-8.2)
[2019-12-21 10:32] LABS: Appearance,Urine Clear (Clear); Bilirubin,Urine Negative (Negative); Blood,Urine Moderate (Negative); Color,Urine Yellow; Glucose,Urine (UA) Negative (Negative); Ketones,Urine Negative (Negative); Leukocyte Esterase,Urine Trace (Negative); Mucus,Urine Occasional /hpf; Nitrite,Urine Negative (Negative); PH, Urine 6.5 (5.0-8.0); Protein,Urine Trace (Negative); RBC,Urine 118 /hpf (0-5); Specific Gravity,Urine 1.026 (1.001-1.035); Squamous Epithelial Cell,Urine 1 /hpf (0-4); Urobilinogen,Urine <2.0 mg/dL (<2.0); WBC,Urine 2 /hpf (0-5)
[2019-12-21 10:37] LABS: HCG,Quantitative Serum 205.5 mIU/mL
--- NOTE | 2019-12-21 11:07 | US ---
EXAMINATION TYPE: Transabdominal DATE OF EXAM: 12/21/2019 10:28 AM COMPARISON: Prior exam 12/17/2019 CLINICAL HISTORY: concern ectopic. Left side pain. Bleeding. Patient states HCG levels have been dr opping but not dramatically. EXAM PERFORMED: Transvaginal (TV) and Transabdominal (TA) EXAM MEASUREMENTS: GESTATIONAL AGE / DATING Physician Established: Not yet established Dates by LMP: (10 weeks/1 days) EDC: 07/17/2020 Dates by First Scan: Unable to date by first scan Dates by Current Scan for: No IUP seen at this time MATERNAL ANATOMY Uterus: 8.3 x 5.3 x 4.8 cm Right Ovary: 2.7 x 1.5 x 1.1 cm Left Ovary: 3.2 x 2.1 x 1.3 cm Post CDS / Adnexa: free fluid Presence of free fluid: yes Presence of corpus luteal cyst: left hypoechoic lesion visualized = 2.5 x 1.7 c 1.0 cm Presence of subchorionic bleed: no GESTATION / SURVEY IUP: No IUP seen at this time Date of LMP: 10/11/2019, Beta HcG (if available): 12/20/2019= 299.1 No YS or CRL visualized in endometrium. Small cystic appearing lesion seen in endometrium = 0.3 x 0. 2 x 0.3 cm. Endometrium = 1.2 cm. Nonvascular hyperechoic lesion seen adjacent to left ovary = 2.3 x 1.6 x 1.8 cm. Fluid seen in cul de sac. IMPRESSION: Findings could possibly represent an early , correlate. Indeterminate echogenic focus adjace nt to the left ovary likely present on prior exam and may be slightly smaller does not show significa nt flow on color Doppler, follow-up.
[2019-12-21] MEDS ORDERED: MORPHINE SULFATE 2 MG/ML SYRINGE IVP STA (11:24)
[2019-12-21] MEDS ORDERED: ACET/COD 300 MG/30 MG STARTER PACK 6 TAB BTL PO STA (11:26)
[2019-12-21 11:40] VITALS: BP 111/77; PULSE 79; RESP 16
== END 2019-12-21 11:55 | disposition home or self-care (01) ==
LOC: EC 09:37
DX: O20.0 Threatened abortion (principal); O99.331 Smoking (tobacco) complicating pregnancy, first trimester; F17.200 Nicotine dependence, unspecified, uncomplicated; Z3A.01 Less than 8 weeks gestation of pregnancy; Z98.890 Other specified postprocedural states
CPT/HCPCS: 36415; 80053; 85025; 81001; 84702; 76801; 76817; 96374; 96361 ×2; 99284; J2270

== ENCOUNTER → 2019-12-24 | Outpatient (CLI) | payer OTHER | END | disposition home or self-care (01) | LOC: LABWHC1 08:42 | PROVIDERS: ATTEND Obstetrics & Gynecology | DX: O20.0 Threatened abortion (principal) | CPT/HCPCS: 36415; 84702 ==

== ENCOUNTER 2019-12-29 10:36 | Emergency (ER) | payer OTHER ==
[2019-12-29 10:45] VITALS: TEMP 98.2
[2019-12-29] MEDS ORDERED: KETOROLAC 30 MG/ML 1 ML VIAL IM STA (10:52)
[2019-12-29] MEDS ORDERED: ACET/COD 300 MG/30 MG STARTER PACK 6 TAB BTL PO STA (10:52)
--- NOTE | 2019-12-29 11:11 | ED ---
Upper Extremity HPI - General Source: patient Mode of arrival: ambulatory Limitations: no limitations <Lilia Arango - Last Filed: 12/29/19 15:32> <Cora Fallon - Last Filed: 12/30/19 01:10> - General Chief Complaint: Extremity Injury, Upper Stated Complaint: wrist pain Time Seen by Provider: 12/29/19 10:48 - History of Present Illness Initial Comments: 34-year-old female patient presents to the emergency department today for evaluation of right hand pain and swelling. Patient states about 30 minutes pr ior to arrival she was upset and punched a wall. Patient states that she had immediate pain and swelling to the right hand. Has not taking anything for pain at this time. Denies numbness or tingling to the fingers. Denies any difficulty range of motion with the fingers. Denies any other injuries. Patient denies any headache, neck pain, back pain, chest pain, shortness of breath, dizziness, weakness, abdominal pain, nausea, vomiting, or difficulties with bowel movements or urination. Denies any chance of . (Lilia Arango) - Related Data Previous Rx's Medication Instructions Recorded Cephalexin [Keflex] 500 mg PO Q12HR 5 Days #10 cap 12/17/19 Allergies Allergy/AdvReac Type Severity Reaction Status Date / Time No Known Allergies Allergy Verified 12/29/19 10:45 Review of Systems ROS Other: All systems not noted in ROS Statement are negative. <Lilia Arango - Last Filed: 12/29/19 15:32> ROS Other: All systems not noted in ROS Statement are negative. <Cora Fallon - Last Filed: 12/30/19 01:10> ROS Statement: Those systems with pertinent positive or pertinent negative responses have been documented in the HPI. Past Medical History Past Medical History: No Reported History Additional Past Medical History / Comment(s): CHOLECYSTITIS History of Any Multi-Drug Resistant Organisms: None Reported Past Surgical History: Section, Cholecystectomy, Ear Surgery, Tonsillectomy Additional Past Surgical History / Comment(s): TUBES IN EARS Additional Past Anesthesia/Blood Transfusion Reaction / Comment(s): VOMITED WITH DEMEROL Past Psychological History: No Psychological Hx Reported Smoking Status: Current every day smoker Past Alcohol Use History: None Reported Past Drug Use History: None Reported - Past Family History Mother Family Medical History: No Reported History <Lilia Arango Nessa Grimes Last Filed: 12/29/19 15:32> General Exam Limitations: no limitations General appearance: alert, in no apparent distress, other (This is a well- developed, well-nourished adult female patient in no acute distress. Vital signs upon presentation are temperature 98.2F, pulse 96, respirations 18, blood pressure 121/72, pulse ox 100% on room air.) Eye exam: Present: normal appearance, PERRL, EOMI. Absent: scleral icterus, conjunctival injection, periorbital swelling ENT exam: Present: normal exam, normal oropharynx, mucous membranes moist Respiratory exam: Present: normal lung sounds bilaterally. Absent: respiratory distress, wheezes, rales, rhonchi, stridor Cardiovascular Exam: Present: regular rate, normal rhythm, normal heart sounds. Absent: systolic murmur, diastolic murmur, rubs, gallop, clicks GI/Abdominal exam: Present: soft, normal bowel sounds. Absent: distended, tenderness, guarding, rebound, rigid Neurological exam: Present: alert, oriented X3, CN II-XII intact Psychiatric exam: Present: normal affect, normal mood Skin exam: Present: warm, dry, intact, normal color. Absent: rash <Lilia Arango Nessa Grimes Filed: 12/29/19 15:32> Course Vital Signs 12/29/19 12/29/19 10:42 13:12 Temperature 98.2 F Pulse Rate 96 71 Respiratory 18 16 Rate Blood Pressure 121/72 120/70 O2 Sat by Pulse 100 98 Oximetry Procedures - Orthopedic Fracture Reduction Fracture #1 Consent Obtained: written consent Side: right Fracture Reduction Location: metacarpal Analgesia: hematoma block Technique: direct manipulation Post Reduction X-rays Demonstrate: other (improved angulation) Post-Reduction Neuro Exam: intact Post-Reduction Vascular Exam: intact Splint Applied: Yes Patient Tolerated Procedure: well, no complications - Orthopedic Splinting/Casting Injury #1 Side: right Upper Extremity Injury Location: hand Upper Extremity Immobilizer: ulnar gutter, Evens wrap <Lilia Arango Nessa - Last Filed: 12/29/19 15:32> - Orthopedic Splinting/Casting Injury #1 Additional Comments: padded with web roll. Neurovascular status intact after splint application. Skin to the fingers is pink warm and dry. Patient denies numbness or tingling. (Lilia Arango) Medical Decision Making - Radiology Data Radiology results: report reviewed, image reviewed <Lilia Arango - Last Filed: 12/29/19 15:32> <Cora Fallon - Last Filed: 12/30/19 01:10> - Medical Decision Making 34-year-old female patient presents to the emergency department today for evaluation of right hand pain and swelling after punching a wall. Physical examination did reveal deformity over the dorsal aspect of the right hand over the fifth metacarpal. There is ecchymosis noted surrounding this area. She does have full range of motion of the right little finger. Neurovascular status is intact. X-ray was obtained and did reveal a fracture to the fifth metacarpal with angulation consistent with boxer's fracture. I did perform a hematoma block and attempted reduction of the fifth metacarpal. Repeat x-ray did show slight improvement of angulation. Patient was placed in an ulnar gutter splint. She'll be discharged follow-up with orthopedics for further evaluation. Return parameters were discussed in detail. She verbalizes understanding and agrees with this plan. (Lilia Arango) I was available for consultation in the emergency department. The history and physical exam were done by the midlevel provider. I was consulted for this patients care. I reviewed the case with the midlevel provider and based on their presentation of the patient, I agree with the assessment, medical decision making and plan of care as documented. Chart was dictated using [employer] dictation software. Attempts were made to correct any dictation errors however some typographical errors may persist. Patient was seen during a national state of emergency due to the Covid-19 pandemic. (Cora Fallon) - Radiology Data 3 views of the right hand are obtained. Report was reviewed in its entirety. Impression by Dr. Bee shows boxer's fracture of the right fifth metacarpal. 2 views of the right hand are obtained. Report was reviewed in its entirety. Impression by Dr. Bee shows slightly improved angulation following reduction. (Lilia Arango) Disposition Is patient prescribed a controlled substance at d/c from ED?: No Time of Disposition: 12:01 <Lilia Arango - Last Filed: 12/29/19 15:32> <LeeanneCora Kavin - Last Filed: 12/30/19 01:10> Clinical Impression: Fracture of fifth metacarpal bone of right hand Disposition: HOME SELF-CARE Condition: Good Instructions (If sedation given, give patient instructions): Hand Fracture (ED), Splint Care (ED) Additional Instructions: Keep splint in place until follow-up with orthopedics. Call Tuesday for an appointment. Take, Motrin for pain control. Apply ice to the hand to aid with pain and swelling. Follow-up through primary care physician for recheck in 1-2 days. Return to the emergency department immediately for any new, worsening, or concerning symptoms. Referrals: Lewis Tesfaye, [Medical Doctor] - 1-2 days
--- NOTE | 2019-12-29 11:28 | XR ---
EXAMINATION TYPE: XR hand complete RT , 3 VIEWS DATE OF EXAM ORDERED: 12/29/2019 HISTORY: Hand injury. COMPARISON: None. FINDINGS: There is a mildly angulated fracture of the distal diametaphysis of the right fifth metaca rpal. No additional fractures are seen. IMPRESSION: "BOXER'S" FRACTURE OF THE RIGHT FIFTH METACARPAL. CODE A: INITIAL ENCOUNTER FOR CLOSED FRACTURE.
[2019-12-29] MEDS ORDERED: LIDOCAINE 1% INJ 10MG/ML (20 ML MDV) SQ ONE (12:08)
[2019-12-29 13:13] VITALS: BP 120/70; PULSE 71; RESP 16
--- NOTE | 2019-12-29 13:27 | XR ---
EXAMINATION TYPE: XR hand limited RT , 2 VIEWS DATE OF EXAM ORDERED: 12/29/2019 HISTORY: post reduction. COMPARISON: Previous study of earlier today. FINDINGS: There is a fracture the distal diametaphysis of the right fifth metacarpal. There may be s lightly less angulation in this post reduction view. The hand is immobilized in a fiberglass lap. IMPRESSION: SLIGHTLY IMPROVED ANGULATION FOLLOWING REDUCTION.
== END 2019-12-29 13:35 | disposition home or self-care (01) ==
LOC: EC 10:36
DX: S62.336A Displaced fracture of neck of fifth metacarpal bone, right hand, initial encounter for closed fracture (principal); F17.200 Nicotine dependence, unspecified, uncomplicated; W22.01XA Walked into wall, initial encounter; Y93.89 Activity, other specified
CPT/HCPCS: 73120; 73130; 99283; 26605; 64450; J2001; J1885

== ENCOUNTER → 2020-01-01 | Outpatient (CLI) | payer OTHER | END | disposition home or self-care (01) | LOC: LABWHC1 12:42 | PROVIDERS: ATTEND Obstetrics & Gynecology | DX: O03.9 Complete or unspecified spontaneous abortion without complication (principal) | CPT/HCPCS: 36415; 84702 ==

== ENCOUNTER → 2020-01-07 | Outpatient (CLI) | payer OTHER | END | disposition home or self-care (01) | LOC: LABWHC1 11:22 | PROVIDERS: ATTEND Orthopaedic Surgery | DX: M79.641 Pain in right hand (principal); S62.306D Unspecified fracture of fifth metacarpal bone, right hand, subsequent encounter for fracture with routine healing | CPT/HCPCS: 36415; 82306 ==

== ENCOUNTER 2020-01-11 11:17 | Day surgery (SDC) | payer OTHER ==
[2020-01-07 17:08] VITALS: BMI 29.0
[2020-01-11] MEDS ORDERED: ONDANSETRON 4 MG/2 ML VIAL ONE (11:30)
[2020-01-11 11:31] VITALS: RESP 16
[2020-01-11] MEDS ORDERED: LACTATED RINGERS 1,000 ML IV ONE (11:35)
[2020-01-11] MEDS ORDERED: LIDOCAINE 1% (10MG/ML) FOR IV START INTRADERMA ONE (11:36)
[2020-01-11] MEDS ORDERED: ONDANSETRON 4 MG/2 ML VIAL IVP ONE ×2 (11:38→13:55)
[2020-01-11] MEDS ORDERED: DEXAMETHASONE SOD PHOSPHATE 10 MG/ML 1 ML VIAL IV ONE ×2 (11:39→13:55)
[2020-01-11] MEDS ORDERED: MIDAZOLAM 2 MG/2 ML VIAL ONE (12:01)
[2020-01-11] MEDS ORDERED: LIDOCAINE 1% INJ 10MG/ML (20 ML MDV) ONE (12:01)
[2020-01-11] MEDS ORDERED: fentaNYL (PF) 50 MCG/ML 2 ML AMP ONE (12:01)
[2020-01-11] MEDS ORDERED: PROPOFOL 10 MG/ML 20 ML VIAL IV ONE (12:01)
[2020-01-11] MEDS ORDERED: LIDOCAINE 1%-EPI 1:100,000 20 ML VIAL SQ ONE (12:30)
[2020-01-11 13:32] VITALS: TEMP 97.8
[2020-01-11] MEDS ORDERED: LACTATED RINGERS 1,000 ML IV SCH (13:55)
[2020-01-11] MEDS ORDERED: LIDOCAINE 1% (10MG/ML) FOR IV START INTRADERMA PRN (13:55)
[2020-01-11] MEDS ORDERED: HYDROmorphone 0.5 MG/0.5 ML SYRINGE IVP PRN (13:55)
[2020-01-11] MEDS ORDERED: fentaNYL (PF) 50 MCG/ML 2 ML AMP IV PRN (13:55)
[2020-01-11] MEDS ORDERED: MIDAZOLAM 2 MG/2 ML VIAL IV PRN (13:55)
--- NOTE | 2020-01-11 14:21 | XR ---
Limited right hand HISTORY: Fracture 7 intraoperative C-arm images document the procedure.
--- NOTE | 2020-01-11 14:22 | FL ---
Fluoroscopy HISTORY: Fracture fifth metacarpal 1.06 minutes fluoroscopy time supplied to the referring clinician. 7 intraoperative C-arm images doc ument the procedure. See dictated report from orthopedic surgery.
[2020-01-11 14:37] VITALS: BP 111/61; PULSE 73
--- NOTE | 2020-01-18 07:03 | P.OP ---
Date of Procedure: 01/11/20 Preoperative Diagnosis: Displaced right fifth metacarpal neck fracture Postoperative Diagnosis: Displaced right fifth metacarpal neck fracture Procedure(s) Performed: Closed reduction and internal fixation of right fifth metacarpal neck fracture with intramedullary headless compression screw (CPT 23940). Implants: Synthes 2.4 mm x 40 mm headless compression screw, long thread Anesthesia: GETA, local Surgeon: Lewis Tesfaye Estimated Blood Loss (ml): 2 Condition: stable Disposition: PACU Indications for Procedure: The patient is 34-year-old female who sustained a right fifth metacarpal neck fracture after a punching injury. Treatment options (and associated risks and benefits) were discussed in the office; the patient elected to undergo surgical stabilization. In preop, additional questions were addressed and the patient wished to proceed with surgery. Consent forms were signed. The operative site was confirmed and marked in preop. Description of Procedure: The patient was brought to the OR and positioned supine with the operative limb on an arm board. Anesthesia and prophylactic antibiotics were administered uneventfully. Local anesthetic with epinephrine was injected around the fracture and planned surgical site. The right upper extremity was then prepped and draped in standard, sterile fashion. A time-out was performed, confirming patient identifiers, the operative side, the site and the procedure to be performed: all team members expressed agreement. The fracture was assessed with intraoperative fluoroscopy, redemonstrating an oblique fracture at the fifth metacarpal head/neck junction. There was mild displacement with angular deformity. A manual reduction was performed and excellent alignment was obtained and confirmed on imaging. The decision was made to proceed with intramedullary fixation. Loupe magnification was utilized throughout the case for optimum visualization. A small longitudinal incision was marked over the metacarpal head. The skin was sharply incised and the subcutaneous tissues were bluntly spread. Based on preoperative templating, the guidewire for the chosen cannulated screw was selected. The starting was confirmed on orthogonal imaging. With the fracture held reduced, the wire was inserted into the dorsal third of the metacarpal head and advanced retrograde down the medullary canal and across the fracture site. Position was confirmed on orthogonal views. A small vertical split in the extensor tendon was made over the guidewire. The cannulated drill was inserted by hand and advanced past the fracture site and into the isthmus. Holding the fracture reduced and controlling rotation, the screw was inserted over the guidewire. This achieved good purchase within the proximal fragment. The screw was advanced until the head was completely recessed below the articular surface. The guidewire was removed. Final x-rays were obtained, confirming fracture reduction and implant position. The fracture was then stressed under live fluoroscopy - no motion was appreciate d at the fracture site. The small finger completely flexed passively into a full composite fist without rotation, overlap or angular deformity. Excellent hemostasis was maintained throughout the case without the need for a tourniquet. The wound was thoroughly irrigated with normal saline. The tendon split was very small and did not require repair. The incision was closed with interrupted 5-0 Nylon sutures. A soft, sterile dressing was applied. All sponge, needle and instrument counts were correct at the end of the case. The patient tolerated the procedure well and was transferred to recovery in stable condition.
== END 2020-01-11 14:50 | disposition home or self-care (01) ==
LOC: OR 11:17
PROVIDERS: ATTEND Orthopaedic Surgery
DX: S62.336A Displaced fracture of neck of fifth metacarpal bone, right hand, initial encounter for closed fracture (principal); Z88.5 Allergy status to narcotic agent; F17.210 Nicotine dependence, cigarettes, uncomplicated; Z79.891 Long term (current) use of opiate analgesic; Z90.49 Acquired absence of other specified parts of digestive tract; Z90.89 Acquired absence of other organs; Z98.890 Other specified postprocedural states; Z83.3 Family history of diabetes mellitus; W22.8XXA Striking against or struck by other objects, initial encounter
CPT/HCPCS: 81025; 73130; 26615; C1713; J2250; J1100; J0690; J2405; J2001; J3010; J2704

== ENCOUNTER 2021-12-02 06:24 | Inpatient (IN) | payer BC, OTHER ==
[2021-12-02] MEDS ORDERED: CITRIC ACID-SODIUM CITRATE 15 ML CUP PO ONE (06:43)
[2021-12-02] MEDS ORDERED: LACTATED RINGERS 1,000 ML IV ONE (06:43)
[2021-12-02 06:58] LABS: Basophils # (A) 0.1 k/uL (0-0.2); Basophils % (A) 1 %; Eosinophils # (A) 0.1 k/uL (0-0.7); Eosinophils % (A) 1 %; HCT 35.6 % (34.0-46.0); HGB 11.3 gm/dL (11.4-16.0); Lymphocytes # (A) 1.8 k/uL (1.0-4.8); Lymphocytes % (A) 15 %; MCH 27.9 pg (25.0-35.0); MCHC 31.7 g/dL (31.0-37.0); Mean Platelet Volume 9.2; Monocytes # (A) 0.9 k/uL (0-1.0); Monocytes % (A) 7 %; Neutrophils # (A) 9.1 k/uL (1.3-7.7); Neutrophils % (A) 75 %; Platelet Count 261 k/uL (150-450); RBC 4.04 m/uL (3.80-5.40); RDW 14.2 % (11.5-15.5); WBC 12.2 k/uL (3.8-10.6)
[2021-12-02] MEDS: LACTATED RINGERS 1,000 ML IV SCH ×3 (07:22→09:36)
[2021-12-02] MEDS ORDERED: diphenhydrAMINE 25 MG CAP PO PRN (09:23)
[2021-12-02] MEDS ORDERED: METOCLOPRAMIDE 5 MG/ML 2 ML VIAL IVP PRN (09:23)
[2021-12-02] MEDS ORDERED: SIMETHICONE 80 MG CHEWABLE PO PRN (09:23)
[2021-12-02] MEDS ORDERED: ONDANSETRON 4 MG/2 ML VIAL IVP PRN (09:23)
[2021-12-02] MEDS ORDERED: ZOLPIDEM 5 MG TAB PO PRN (09:23)
[2021-12-02] MEDS ORDERED: NALOXONE 0.4 MG/ML 1 ML VIAL IV PRN (09:23)
[2021-12-02] MEDS ORDERED: diphenhydrAMINE 50 MG/ML 1 ML VIAL IVP PRN ×2 (09:23)
[2021-12-02] MEDS ORDERED: diphenhydrAMINE 50 MG CAP PO PRN (09:23)
[2021-12-02] MEDS ORDERED: OXYTOCIN 30 UNITS/500 ML NS 30 UNIT in SALINE 1 500ML.BAG IV SCH (09:30)
--- NOTE | 2021-12-02 12:43 | P.HPOB ---
History of Present Illness H&P Date: 12/02/21 Chief Complaint: Repeat low transverse 36-year-old presents at 39 weeks for a repeat low transverse . Review of Systems All systems: negative Constitutional: Denies chills, Denies fever Eyes: denies blurred vision, denies pain Ears, nose, mouth and throat: Denies headache, Denies sore throat Cardiovascular: Denies chest pain, Denies shortness of breath Respiratory: Denies cough Gastrointestinal: Denies abdominal pain, Denies diarrhea, Denies nausea, Denies vomiting Genitourinary: Denies dysuria, Denies hematuria Musculoskeletal: Denies myalgias Integumentary: Denies pruritus, Denies rash Neurological: Denies numbness, Denies weakness Psychiatric: Denies anxiety, Denies depression Endocrine: Denies fatigue, Denies weight change Past Medical History Past Medical History: No Reported History Additional Past Medical History / Comment(s): CHOLECYSTITIS History of Any Multi-Drug Resistant Organisms: None Reported Past Surgical History: Section, Cholecystectomy, Ear Surgery, Ort hopedic Surgery, Tonsillectomy Additional Past Surgical History / Comment(s): TUBES IN EARS Past Anesthesia/Blood Transfusion Reactions: No Reported Reaction Additional Past Anesthesia/Blood Transfusion Reaction / Comment(s): VOMITED WITH DEMEROL Past Psychological History: No Psychological Hx Reported Additional Psychological History / Comment(s): with procedures Smoking Status: Current every day smoker Past Alcohol Use History: None Reported Additional Past Alcohol Use History / Comment(s): STARTED SMOKING AGE 18,(2002) uses vape now Past Drug Use History: None Reported Additional Drug Use History / Comment(s): instructed to hold 24 hrs prior to procedure - Past Family History Mother Family Medical History: No Reported History Medications and Allergies Home Medications Medication Instructions Recorded Confirmed Type Pnv,Calcium 72/Iron/Folic Acid 1 tab PO DAILY 12/02/21 12/02/21 History [ Plus Tablet] RX: Aspirin [Adult Low Dose 1 tab PO DAILY 12/02/21 12/02/21 History Aspirin EC] Allergies Allergy/AdvReac Type Severity Reaction Status Date / Time meperidine [From Demerol] AdvReac Nausea & Verified 11/15/21 21:27 Vomiting Exam Osteopathic Statement: *. No significant issues noted on an osteopathic structural exam other than those noted in the History and Physical/Consult. Vital Signs Temp Pulse Resp BP Pulse Ox 12/02/21 11:00 96.7 F L 88 16 126/59 97 12/02/21 10:30 78 16 127/61 95 12/02/21 10:00 96.5 F L 61 16 108/60 12/02/21 09:45 70 16 115/63 98 12/02/21 09:30 75 16 119/59 12/02/21 09:15 83 16 124/71 12/02/21 09:00 86 16 109/52 96 12/02/21 06:40 96.6 F L 123 H 16 130/75 97 Intake and Output 12/01/21 12/02/21 12/02/21 22:59 06:59 14:59 Output Total 872 Balance -872 Output: Urine 100 Output, Quantitative 772 Blood Loss Other: Weight 103.873 kg Heart: Regular rate and rhythm Lungs: Clear to auscultation bilaterally Abdomen: Soft, nontender Extremities: Negative Homans sign Results Result Diagrams: 12/02/21 06:46 Abnormal Lab Results - Last 24 Hours (Table) 12/02/21 Range/Units 06:46 WBC 12.2 H (3.8-10.6) k/uL Hgb 11.3 L (11.4-16.0) gm/dL Neutrophils # 9.1 H (1.3-7.7) k/uL Assessment and Plan (1) 39 weeks gestation of Current Visit: Yes Status: Acute Code(s): Z3A.39 - 39 WEEKS GESTATION OF SNOMED Code(s): 66724922 (2) Previous section Current Visit: Yes Status: Acute Code(s): Z98.891 - HISTORY OF UTERINE SCAR FROM PREVIOUS SURGERY SNOMED Code(s): 181128637 Plan: 1. Repeat low transverse
[2021-12-02] MEDS: ACETAMINOPHEN TAB 500 MG TAB PO SCH ×2 (12:45→18:33)
--- NOTE | 2021-12-02 12:45 | P.OP ---
Date of Procedure: 12/02/21 Preoperative Diagnosis: 1. at 39 weeks 2. Previous section Postoperative Diagnosis: 1. at 39 weeks 2. Previous section Procedure(s) Performed: Repeat low transverse Anesthesia: spinal Surgeon: Valeria Rivera Strategy Associate #1: Hunter Maldonado Estimated Blood Loss (ml): 650 IV fluids (ml): 500 Urine output (ml): 200 Pathology: none sent Condition: stable Disposition: floor Operative Findings: Viable male, Apgars 8, 9, weight 6 lbs. 13 oz. normal uterus, tubes, ovaries Description of Procedure: Patient was taken to the operating room where spinal anesthesia was found be adequate. She was prepped and draped in normal sterile fashion in dorsal supine position with a leftward tilt. Pfannenstiel skin incision was made the scalpel and carried through to the underlying layer of fascia with the scalpel. Fascia was incised in midline and carried bilaterally with the Burkett scissors. The superior aspect of the fascial incision was grasped with [place] clamps elevated and the underlying rectus muscles dissected off with the Burkett's. Attention was then turned to inferior aspect of same incision which in a similar fashion was grasped tented up and the underlying rectus muscles dissected off with the Burkett's. The rectus muscles were the midline and the peritoneum was identified tented up and entered sharply with the scalpel. The incision was extended superiorly and inferiorly with good visualization of the bladder. The bladder blade was inserted and the vesicouterine peritoneum was incised the Metzenbaums then carried bilaterally and bladder flap created digitally. A low transverse incision was then made on the uterus with the scalpel. This was carried bilaterally and digital manner. 's head delivered atraumatically, nose and mouth bulb suctioned, cord clamped and cut, infant handed off to waiting nurses. Apgars 8,9, weight 6 lbs. 13 oz. Placenta delivered manually, intact with three-vessel cord. The uterus is exteriorized and cleared of all clots and debris. The uterine incision was closed with 0 Vicryl in a running locked fashion. Second layer of the same sutures used in imbricating fashion to obtain excellent hemostasis. Bladder flap was then reapproximated using 2-0 Vicryl in a running fashion. Both ovaries and tubes appeared normal. The uterus was placed back into the abdomen. The peritoneum was reapproximated using 2-0 Vicryl in a running fashion. The muscles were reapproximated using 2- 0 Vicryl in interrupted fashion. The fascia was reapproximated using 0 Vicryl in a running fashion. The subcutaneous tissues closed with 3-0 Vicryl running fashion. The skin was closed timohty. Patient tolerated the procedure well, sponge and instrument counts were correct times 2 and she was taken to the recovery room in stable condition.
[2021-12-02] MEDS: KETOROLAC 15 MG/ML 1 ML VIAL IVP SCH ×2 (15:35→21:23)
[2021-12-02] MEDS: IBUPROFEN 600 MG TAB PO SCH (16:01)
[2021-12-02] MEDS: SENNOSIDES-DOCUSATE SODIUM 1 EACH TAB PO SCH (20:12)
[2021-12-03] MEDS: KETOROLAC 15 MG/ML 1 ML VIAL IVP SCH (03:57)
[2021-12-03] MEDS: IBUPROFEN 600 MG TAB PO SCH ×4 (05:15→21:50)
[2021-12-03] MEDS: ACETAMINOPHEN TAB 500 MG TAB PO SCH ×3 (05:54→17:47)
[2021-12-03] MEDS ORDERED: oxyCODONE-APAP 5-325MG 1 EACH TAB PO PRN (07:50)
[2021-12-03] MEDS: SENNOSIDES-DOCUSATE SODIUM 1 EACH TAB PO SCH ×2 (08:07→21:50)
[2021-12-03 08:14] LABS: Basophils % (A) 0 %; Eosinophils # (A) 0.1 k/uL (0-0.7); Eosinophils % (A) 1 %; HCT 33.3 % (34.0-46.0); HGB 10.4 gm/dL (11.4-16.0); Hypochromasia Slight; Lymphocytes # (A) 1.4 k/uL (1.0-4.8); Lymphocytes % (A) 12 %; MCH 28.3 pg (25.0-35.0); MCHC 31.2 g/dL (31.0-37.0); MCV 90.6 fL (80.0-100.0); Monocytes # (A) 0.9 k/uL (0-1.0); Monocytes % (A) 8 %; Neutrophils # (A) 8.6 k/uL (1.3-7.7); Neutrophils % (A) 78 %; Platelet Count 228 k/uL (150-450); RBC 3.68 m/uL (3.80-5.40); RDW 14.2 % (11.5-15.5); WBC 11.1 k/uL (3.8-10.6)
--- NOTE | 2021-12-03 08:14 | P.PNOBGPC ---
Subjective - Subjective Principal diagnosis: Status post repeat low transverse postop day #1 Interval history: Patient seen and examined. Denies nausea, vomiting, chest pain, shortness of breath or any calf pain. Patient reports: Reports appetite normal, Reports voiding normally, Reports pain well controlled, Reports ambulating normally Objective - Vital Signs Latest vital signs: Vital Signs Temp Pulse Resp BP Pulse Ox 12/03/21 08:00 97.7 F 64 16 110/74 99 12/03/21 04:00 97.5 F L 71 18 123/75 99 12/03/21 00:00 97.7 F 76 16 108/61 98 12/02/21 20:00 98.2 F 65 19 105/58 97 12/02/21 15:58 98.3 F 72 16 108/68 98 12/02/21 11:00 96.7 F L 88 16 126/59 97 12/02/21 10:30 78 16 127/61 95 12/02/21 10:00 96.5 F L 61 16 108/60 12/02/21 09:45 70 16 115/63 98 12/02/21 09:30 75 16 119/59 12/02/21 09:15 83 16 124/71 12/02/21 09:00 86 16 109/52 96 Intake and Output 12/02/21 12/03/21 12/03/21 22:59 06:59 14:59 Intake Total 960 Output Total 450 700 Balance 510 -700 Intake: Oral 960 Output: Urine 450 700 Other: # Voids 1 1 - Exam Lungs: bilateral: normal Chest: Normal S1, Normal S2 Extremities: Present: normal Abdomen: Present: normal appearance, soft. Absent: distention, tenderness Incision: Present: normal, dry, intact Uterus: Present: normal, firm Assessment and Plan (1) 39 weeks gestation of Current Visit: Yes Status: Resolved Code(s): Z3A.39 - 39 WEEKS GESTATION OF SNOMED Code(s): 17319417 (2) Previous section Current Visit: Yes Status: Resolved Code(s): Z98.891 - HISTORY OF UTERINE SCAR FROM PREVIOUS SURGERY SNOMED Code(s): 950628642 (3) Status post repeat low transverse section Current Visit: Yes Status: Acute Code(s): Z98.891 - HISTORY OF UTERINE SCAR FROM PREVIOUS SURGERY SNOMED Code(s): 026451808 Plan: 1. Increase ambulation 2. By mouth pain medication
--- NOTE | 2021-12-03 09:48 | P.PN ---
Progress Note - Text Date: 12/03/2021 Time: 07:12 The patient is status post section Vital signs stable VAS: 0-10 Patient has no complaints of pain. The patient incurred some minimal itching yesterday, this itching is now subsiding. Pain meds to be managed by service.
[2021-12-04] MEDS: ACETAMINOPHEN TAB 500 MG TAB PO SCH ×5 (04:29→18:17)
[2021-12-04] MEDS: IBUPROFEN 600 MG TAB PO SCH ×4 (08:05→19:39)
[2021-12-04] MEDS: SENNOSIDES-DOCUSATE SODIUM 1 EACH TAB PO SCH ×2 (08:05→19:39)
--- NOTE | 2021-12-04 08:14 | P.PNOBGPC ---
Subjective - Subjective Principal diagnosis: Status post repeat low transverse postop day #2 Interval history: Patient is still struggling with pain control. Are normal ensure she gets her Motrin and Tylenol [id number] and oxycodone when she needs it. We instructed her on using her abdominal binder appropriately. She denies nausea, vomiting, chest pain, shortness of breath or calf pain. Patient reports: Reports appetite normal, Reports voiding normally, Reports ambulating normally Objective - Vital Signs Latest vital signs: Vital Signs Temp Pulse Resp BP Pulse Ox 12/04/21 00:00 98.4 F 68 16 108/74 97 12/03/21 23:18 16 12/03/21 20:00 98.3 F 70 16 91/53 98 12/03/21 16:00 98.0 F 68 17 112/78 Intake and Output 12/03/21 12/04/21 12/04/21 22:59 06:59 14:59 Intake Total 480 Balance 480 Intake: Oral 480 - Exam Lungs: bilateral: normal Chest: Normal S1, Normal S2 Extremities: Present: normal Abdomen: Present: normal appearance, soft. Absent: distention, tenderness Incision: Present: normal, dry, intact Uterus: Present: normal, firm - Labs Labs: Abnormal Lab Results - Last 24 Hours (Table) 12/03/21 Range/Units 07:43 WBC 11.1 H (3.8-10.6) k/uL RBC 3.68 L (3.80-5.40) m/uL Hgb 10.4 L (11.4-16.0) gm/dL Hct 33.3 L (34.0-46.0) % Neutrophils # 8.6 H (1.3-7.7) k/uL Assessment and Plan (1) 39 weeks gestation of Current Visit: Yes Status: Resolved Code(s): Z3A.39 - 39 WEEKS GESTATION OF SNOMED Code(s): 82926617 (2) Previous section Current Visit: Yes Status: Resolved Code(s): Z98.891 - HISTORY OF UTERINE SCAR FROM PREVIOUS SURGERY SNOMED Code(s): 296380061 (3) Status post repeat low transverse section Current Visit: Yes Status: Acute Code(s): Z98.891 - HISTORY OF UTERINE SCAR FROM PREVIOUS SURGERY SNOMED Code(s): 555964334 Plan: 1. Increase ambulation 2. Pain control
[2021-12-05] MEDS: ACETAMINOPHEN TAB 500 MG TAB PO SCH ×4 (00:16→18:50)
[2021-12-05] MEDS: IBUPROFEN 600 MG TAB PO SCH ×4 (03:14→23:23)
--- NOTE | 2021-12-05 07:24 | P.PNOBGPC ---
Subjective - Subjective Patient reports: Reports appetite normal, Reports voiding normally, Reports pain well controlled, Reports ambulating normally : doing well Objective - Vital Signs Latest vital signs: Vital Signs Temp Pulse Resp BP Pulse Ox 12/05/21 00:13 97.7 F 74 16 120/73 98 12/04/21 16:00 97.6 F 79 18 129/71 98 12/04/21 08:00 98.5 F 85 18 141/75 98 - Exam Lungs: bilateral: normal Chest: Normal S1, Normal S2 Extremities: Present: normal Abdomen: Present: normal appearance, soft. Absent: distention, tenderness Incision: Present: normal, dry, intact Uterus: Present: normal, firm Assessment and Plan Assessment: Postoperative day #3. Patient continues to do well without new complaints. Vital signs are stable she's afebrile. Uterus is firm nontender and she is havi ng normal lochia. Baby is in special care most likely will come to the room today. Plan is to continue routine postoperative care most likely discharge home tomorrow (1) Status post repeat low transverse section Current Visit: Yes Status: Acute Code(s): Z98.891 - HISTORY OF UTERINE SCAR FROM PREVIOUS SURGERY SNOMED Code(s): 666293895
[2021-12-05] MEDS: SENNOSIDES-DOCUSATE SODIUM 1 EACH TAB PO SCH ×2 (09:18→20:30)
[2021-12-06 00:52] VITALS: RESP 16
[2021-12-06] MEDS: ACETAMINOPHEN TAB 500 MG TAB PO SCH ×2 (03:29→10:51)
--- NOTE | 2021-12-06 07:40 | P.PNOBGPC ---
Subjective - Subjective Patient reports: Reports appetite normal, Reports voiding normally, Reports pain well controlled, Reports ambulating normally [place]: doing well Objective - Vital Signs Latest vital signs: Vital Signs Temp Pulse Resp BP Pulse Ox 12/06/21 00:00 98.0 F 75 16 125/67 12/05/21 16:00 98.4 F 73 18 122/69 97 12/05/21 09:15 98.2 F 72 18 130/63 96 - Exam Lungs: bilateral: normal Chest: Normal S1, Normal S2 Extremities: Present: normal Abdomen: Present: normal appearance, soft. Absent: distention, tenderness Incision: Present: normal, dry, intact Uterus: Present: normal, firm Assessment and Plan Assessment: Postoperative day #4. Patient is resting. She did have some swelling under her left axilla that induced after nursing and I examined her today and is evident this appears to be breast tissue. There is no evidence of infection. Incision is intact and dry. Vital signs are stable and she is afebrile. Patient's felt to be stable for discharge home follow up with Dr. Rivera in 1 week. Today we'll continue routine postoperative care (1) Status post repeat low transverse section Current Visit: Yes Status: Acute Code(s): Z98.891 - HISTORY OF UTERINE SCAR FROM PREVIOUS SURGERY SNOMED Code(s): 975004088
--- NOTE | 2021-12-06 07:46 | P.DS ---
Providers Date of admission: 12/02/21 06:24 Expected date of discharge: 12/06/21 Attending physician: Valeria Rivera Primary care physician: Stated None - Discharge Diagnosis(es) (1) Status post repeat low transverse section Current Visit: Yes Status: Acute Hospital Course: Please see dictated H&P and delivery note per Dr. Rivera on this patient's admission. Brief summary this is a 36-year-old 7 para 3 female 39 weeks gestation who is admitted to labor and delivery for repeat section. Please see dictated operative note. Postoperatively the patient did have some pain control issues but otherwise was doing well. On postoperative day #4 she is felt to be stable for discharge home follow up with Dr. Rivera 1 week for an incision check. Procedures: Repeat low transverse section Patient Condition at Discharge: Good Plan - Discharge Summary New Discharge Prescriptions: New Ibuprofen [Motrin] 600 mg PO Q6H #40 tab oxyCODONE HCL [OxyIR] 5 mg PO Q4HR PRN #18 tab PRN Reason: Pain Scale 4 - 6 No Action Pnv,Calcium 72/Iron/Folic Acid [ Plus Tablet] 1 tab PO DAILY Aspirin [Adult Low Dose Aspirin EC] 1 tab PO DAILY Discharge Medication List Aspirin [Adult Low Dose Aspirin EC] 1 tab PO DAILY 12/02/21 [History] Pnv,Calcium 72/Iron/Folic Acid [ Plus Tablet] 1 tab PO DAILY 12/02/21 [History] Ibuprofen [Motrin] 600 mg PO Q6H #40 tab 12/06/21 [Rx] oxyCODONE HCL [OxyIR] 5 mg PO Q4HR PRN #18 tab 12/06/21 [Rx] Follow up Appointment(s)/Referral(s): Valeria Rivera DO [Doctor of Osteopathic Medicine] - 01/13/22 3:45 pm (C/S post op appt-12/14/2021@1:30pm) Patient Instructions/Handouts: (DC) Activity/Diet/Wound Care/Special Instructions: No heavy lifting or strenuous activity for 6 weeks. No intercourse or anything per vagina for 6 weeks. Please call if any fever, chills, excessive vaginal bleeding, and/or abdominal pain. Discharge Disposition: HOME SELF-CARE
[2021-12-06] MEDS: SENNOSIDES-DOCUSATE SODIUM 1 EACH TAB PO SCH (08:37)
[2021-12-06] MEDS: IBUPROFEN 600 MG TAB PO SCH (08:39)
[2021-12-06 09:43] VITALS: BP 125/79; PULSE 81; TEMP 98.2
== END 2021-12-06 12:15 | disposition home or self-care (01) | DRG 788 ==
LOC: 4FBP 06:24
PROVIDERS: ADMIT Obstetrics & Gynecology; ATTEND Obstetrics & Gynecology
PROC: 10D00Z1 Extraction of Products of Conception, Low, Open Approach (ICD-10-PCS; principal; 2021-12-02 08:34)
DX: O34.211 Maternal care for low transverse scar from previous cesarean delivery (principal); F17.200 Nicotine dependence, unspecified, uncomplicated; O99.334 Smoking (tobacco) complicating childbirth; Z37.0 Single live birth; Z3A.39 39 weeks gestation of pregnancy; Z79.82 Long term (current) use of aspirin
CPT/HCPCS: 85025; 86850; 86900; 86901

== ENCOUNTER 2023-03-05 08:02 | Emergency (ER) | payer BC ==
[2023-03-05] MEDS ORDERED: ACETAMINOPHEN TAB 500 MG TAB PO STA (08:29)
--- NOTE | 2023-03-05 08:36 | ED ---
Lower Extremity Injury HPI - General Chief Complaint: Extremity Injury, Lower Stated Complaint: Left toe injury Time Seen by Provider: 03/05/23 08:24 Source: patient, RN notes reviewed Mode of arrival: ambulatory Limitations: no limitations - History of Present Illness Initial Comments: Patient is a 38-year-old female presenting to the emergency room for further evaluation of left fifth toe deformity and tenderness on the lateral aspect of left foot and at the base of the fifth metatarsal after stepping awkwardly down a step prior to her arrival to the emergency room. She reports sudden deformity and severe pain at the time of the incident. She denies any numbness or tingling. She has not taken any medication for pain. She has been able to walk on it however it does cost severe pain. She denies any injury to any other location. Incidentally she is currently 12 weeks and on a baby aspirin due to geriatric status. Her past medical history as listed below including surgical procedures was reviewed. - Related Data Home Medications Medication Instructions Recorded Confirmed Aspirin [Adult Low Dose Aspirin EC] 1 tab PO DAILY 12/02/21 12/02/21 Vit No.180/Iron/Folic 1 tab PO DAILY 12/02/21 12/02/21 [ Plus Tablet] Allergies Allergy/AdvReac Type Severity Reaction Status Date / Time meperidine [From Demerol] AdvReac Nausea & Verified 03/05/23 08:06 Vomiting Review of Systems ROS Statement: Those systems with pertinent positive or pertinent negative responses have been documented in the HPI. ROS Other: All systems not noted in ROS Statement are negative. Past Medical History Past Medical History: No Reported History History of Any Multi-Drug Resistant Organisms: None Reported Past Surgical History: Section, Cholecystectomy, Ear Surgery, Orthopedic Surgery, Tonsillectomy Additional Past Surgical History / Comment(s): TUBES IN EARS Past Anesthesia/Blood Transfusion Reactions: No Reported Reaction Additional Past Anesthesia/Blood Transfusion Reaction / Comment(s): VOMITED WITH DEMEROL Past Psychological History: No Psychological Hx Reported Smoking Status: Vaper Past Alcohol Use History: None Reported Past Drug Use History: None Reported - Past Family History Mother Family Medical History: No Reported History General Exam Limitations: no limitations General appearance: alert, in no apparent distress Head exam: Present: atraumatic, normocephalic, normal inspection Eye exam: Present: normal appearance, PERRL, EOMI. Absent: scleral icterus, conjunctival injection, periorbital swelling ENT exam: Present: normal exam, mucous membranes moist Neck exam: Present: normal inspection, full ROM Respiratory exam: Absent: respiratory distress, accessory muscle use Cardiovascular Exam: Present: regular rate Left Foot/Toe exam: Present: tenderness, swelling, deformity (5th toe), tenderness at base of 5th metatarsal. Absent: full ROM (limited by pain), abrasion, laceration, puncture wound, calcaneal tenderness, nail avulsion, subungual hematoma Neurovascular tendon exam: Present: no vascular compromise Gait: observed and limited by pain Back exam: Present: normal inspection Neurological exam: Present: alert, oriented X3, CN II-XII intact Psychiatric exam: Present: normal affect, normal mood Skin exam: Present: warm, dry, intact, normal color. Absent: rash Course Vital Signs 03/05/23 03/05/23 08:03 10:21 Temperature 98 F 98.4 F Pulse Rate 90 70 Respiratory 20 18 Rate Blood Pressure 107/68 115/83 O2 Sat by Pulse 99 100 Oximetry Procedures - Orthopedic Fracture Reduction Fracture #1 Consent Obtained: verbal consent Side: left Fracture Reduction Location: toe (5th) Analgesia: digital block Technique: direct manipulation Post Reduction X-rays Demonstrate: anatomical reduction Post-Reduction Neuro Exam: intact Post-Reduction Vascular Exam: intact Splint Applied: Yes (sulaiman tape) Patient Tolerated Procedure: well, no complications - Orthopedic Splinting/Casting Injury #1 Side: left Lower Extremity Injury Location: toe Lower Extremity Immobilizer: sulaiman tape Medical Decision Making - Medical Decision Making Was pt. sent in by a medical professional or institution (GLENDY Waters, ANIMAL LABORATORY HELPER, urgent care, hospital, or [facility]...) When possible be specific @ -No Did you speak to anyone other than the patient for history (EMS, parent, family, police, friend...)? What history was obtained from this source @ -No Did you review nursing and triage notes (agree or disagree)? Why? @ -I reviewed and agree with nursing and triage notes Were old charts reviewed (outside hosp., previous admission, EMS record, old EKG, old radiological studies, urgent care reports/EKG's, [facility] records)? Report findings @ -No old charts were reviewed Differential Diagnosis (chest pain, altered mental status, abdominal pain women, abdominal pain men, vaginal bleeding, weakness, fever, dyspnea, syncope, headache, dizziness, GI bleed, back pain, seizure, CVA, palpatations, mental health, musculoskeletal)? @ -Differential Musculoskeletal Muscular strain, contusion, ligament sprain, fracture, arthritis, septic arthritis, bursitis, cellulitis, muscle spasm, nerve compression, DVT, arterial occlusion, herpes zoster, electrolyte abnormality, tumor.... This is not meant to be in all inclusive list EKG interpreted by me (3pts min.). @ -None done X-rays interpreted by me (1pt min.). @ -X-ray left foot :Displaced left fifth proximal phalange fracture Post reduction x-ray of left toe shows improved alignment of fifth proximal phalanx fracture per radiologist approximately 1.5 mm lateral displacement with underlying soft tissue edema CT interpreted by me (1pt min.). @ -None done U/S interpreted by me (1pt. min.). @ -None done What testing was considered but not performed or refused? (CT, X-rays, U/S, labs)? Why? @ -None What meds were considered but not given or refused? Why? @ -NSAIDs considered for musculoskeletal pain but deferred due to known pregn humberto of 12 weeks Did you discuss the management of the patient with other professionals (professionals i.e. , PA, ANIMAL LABORATORY HELPER, lab, RT, psych nurse, social services, diesel motor mechanic, teacher, audit officer, outpatient case manager)? Give summary @ -No Was smoking cessation discussed for >3mins.? @ -No Was critical care preformed (if so, how long)? @ -No Were there social determinants of health that impacted care today? How? (Homelessness, low income, unemployed, alcoholism, drug addiction, transportation, low edu. Level, literacy, decrease access to med. care, [facility]ci, rehab)? @ -No Was there de-escalation of care discussed even if they declined (Discuss DNR or withdrawal of care, Hospice)? DNR status @ -No What co-morbidities impacted this encounter? (DM, HTN, Smoking, COPD, CAD, Cancer, CVA, ARF, Chemo, Hep., AIDS, mental health diagnosis, sleep apnea, morbid obesity)? @ -Currently 12 weeks Was patient admitted / discharged? Hospital course, mention meds given and route, prescriptions, significant lab abnormalities, going to OR and other pertinent info. @ -38-year-old female presenting to the emergency room for further evaluation of left fifth toe deformity and tenderness on the lateral aspect of left foot and at the base of the fifth metatarsal after stepping awkwardly down a step prior to her arrival to the emergency room. She reports sudden deformity and severe pain at the time of the incident. She has not taken any medication for pain. Due to status will give 1 g of Tylenol for pain at this time monitor. Will obtain x-ray of the left foot. X-ray demonstrates a displaced fracture to the fifth proximal phalange of left foot. Per patient request digital block performed of fifth left phalange prior to reduction and application of sulaiman tape of fifth digit to fourth digit. High concern for malalignment encouraged continuation of strong tape usage for sulaiman tape or Velcro straps available at local pharmacy. Advised follow-up with podiatry. Advised no high impact activity such as running or jumping. Advise use of Tylenol in the setting of for pain. Questions and concerns answered. Return parameters the emergency room discussed. Will discharge home in stable condition status post reduction and splinting application to left foot fifth proximal phalange fracture advising continued use of splint and follow-up with podiatry. Undiagnosed new problem with uncertain prognosis? @ -No Drug Therapy requiring intensive monitoring for toxicity (Heparin, Nitro, Insulin, Cardizem)? @ -No Were any procedures done? @ - Yes, fracture reduction and sulaiman tape application, see procedures for details. Diagnosis/symptom? @ - Fracture left foot fifth proximal phalange Acute, or Chronic, or Acute on Chronic? @ -Acute Uncomplicated (without systemic symptoms) or Complicated (systemic symptoms)? @ -Uncomplicated Side effects of treatment? @ -No Exacerbation, Progression, or Severe Exacerbation? @ -No Poses a threat to life or bodily function? How? (Chest pain, [place], [place], pneumonia, PE, COPD, DKA, ARF, appy, cholecystitis, CVA, Diverticulitis, Homicidal, Suicidal, threat to staff... and all critical care pts) @ -No Case discussed with Dr. Lott. Disposition Clinical Impression: Fracture of fifth metatarsal bone of left foot Disposition: HOME SELF-CARE Condition: Stable Instructions (If sedation given, give patient instructions): Toe Fracture (ED) Additional Instructions: Utilize Tylenol as needed for pain. Anti-inflammatories such as Motrin is not advised and . Continue sulaiman tape and follow-up with podiatry regarding fracture she her toe. Avoid high impact activities including jumping or running. Please return to the Emergency Department if symptoms worsen or any other concerns. Is patient prescribed a controlled substance at d/c from ED?: No Referrals: Sherman Berrios Jr, DO [Primary Care Provider] - 1-2 days Mone Rodrigues DPM [REFERRING] - 1-2 days Time of Disposition: 10:32
--- NOTE | 2023-03-05 09:01 | XR ---
EXAMINATION TYPE: XR foot complete LT DATE OF EXAM: 03/05/2023 8:55 AM INDICATION: Patient age:Female; 38 years old; Reason for study: trip pain; [facility]. COMPARISON: None TECHNIQUE: The left foot was examined in the AP, oblique, and lateral projections. FINDINGS: Acute displaced transverse fracture through the distal shaft of the fifth proximal phalanx. Distal fr acture fragment is displaced laterally with shortening identified. There are is surrounding soft tiss ue edema. Joints are preserved. Incidental note is made of symphalangism of the fifth distal interpha langeal joint. IMPRESSION: Acute displaced fracture of the left fifth proximal phalanx.
[2023-03-05] MEDS ORDERED: LIDOCAINE 1% INJ 10MG/ML (30 ML VIAL-PF) SQ ONE (09:07)
[2023-03-05] MEDS ORDERED: LIDOCAINE 1% INJ 10MG/ML (20 ML MDV) SQ ONE (09:24)
--- NOTE | 2023-03-05 10:15 | XR ---
EXAMINATION TYPE: XR toes LT DATE OF EXAM: 03/05/2023 10:09 AM INDICATION: Patient age:Female; 38 years old; Reason for study: post reduction; [facility]. COMPARISON: Foot radiograph of the same date TECHNIQUE: The fifth digit of the left foot was examined in the AP and lateral projections. FINDINGS: Redemonstration of acute fracture through the distal shaft of the fifth proximal phalanx. There is im proved alignment from prior examination with approximately 1.5 mm of lateral displacement of the dist al fracture fragment. Overlying soft tissue edema identified. No dislocation. IMPRESSION: Improved alignment of fifth proximal phalanx fracture status post reduction.
[2023-03-05 10:23] VITALS: BP 115/83; PULSE 70; RESP 18; TEMP 98.4
== END 2023-03-05 10:43 | disposition home or self-care (01) ==
LOC: EC 08:02
DX: O9A.211 Injury, poisoning and certain other consequences of external causes complicating pregnancy, first trimester (principal); S92.352A Displaced fracture of fifth metatarsal bone, left foot, initial encounter for closed fracture; O09.91 Supervision of high risk pregnancy, unspecified, first trimester; O99.331 Smoking (tobacco) complicating pregnancy, first trimester; F17.290 Nicotine dependence, other tobacco product, uncomplicated; Z3A.12 12 weeks gestation of pregnancy; Z79.82 Long term (current) use of aspirin; Z88.5 Allergy status to narcotic agent; X50.9XXA Other and unspecified overexertion or strenuous movements or postures, initial encounter
CPT/HCPCS: 73630; 73660; 99283; 28475; J2001

== ENCOUNTER 2023-08-17 06:02 | Inpatient (IN) | payer BC ==
[2023-08-17] MEDS ORDERED: METHYLERGONOVINE 0.2 MG/ML 1 ML AMP IM PRN (06:18)
[2023-08-17] MEDS ORDERED: CARBOPROST TROMETHAMINE 250 MCG/ML 1 ML AMP IM PRN (06:18)
[2023-08-17] MEDS ORDERED: TRANEXAMIC 1,000 MG/100ML-NACL 1,000 MG in EMPTY BAG 1 BAG IV PRN (06:18)
[2023-08-17] MEDS ORDERED: miSOPROStoL 200 MCG TAB PO PRN (06:18)
[2023-08-17] MEDS ORDERED: OXYTOCIN 10 UNIT/ML 1 ML VIAL IM PRN (06:18)
[2023-08-17] MEDS: LACTATED RINGERS 1,000 ML IV SCH (06:39)
[2023-08-17 06:55] LABS: Basophils % (A) 0 %; Eosinophils # (A) 0.1 k/uL (0-0.7); Eosinophils % (A) 1 %; HCT 34.2 % (34.0-46.0); Lymphocytes # (A) 1.6 k/uL (1.0-4.8); Lymphocytes % (A) 20 %; MCH 27.9 pg (25.0-35.0); Mean Platelet Volume 9.4; Monocytes # (A) 0.5 k/uL (0-1.0); Monocytes % (A) 7 %; Neutrophils # (A) 5.5 k/uL (1.3-7.7); Neutrophils % (A) 69 %; Platelet Count 243 k/uL (150-450); RBC 3.93 m/uL (3.80-5.40); RDW 13.9 % (11.5-15.5); WBC 7.9 k/uL (3.8-10.6)
[2023-08-17] MEDS: CITRIC ACID-SODIUM CITRATE 15 ML CUP PO ONE (07:27)
[2023-08-17] MEDS ORDERED: MORPHINE SULFATE (PF) 0.3 MG/0.3 ML SYR ONE (07:52)
[2023-08-17] MEDS ORDERED: ONDANSETRON 4 MG/2 ML VIAL ONE (07:52)
[2023-08-17] MEDS ORDERED: NALBUPHINE 10 MG/ML (10 ML MDV) ONE (07:52)
[2023-08-17] MEDS ORDERED: OXYTOCIN 30 UNITS/500 ML NS BAG IV ONE (07:52)
[2023-08-17] MEDS ORDERED: PHENYLEPHRINE-0.9% NACL SYG 1,000 MCG/10 ML SYRINGE ONE (07:52)
[2023-08-17] MEDS ORDERED: fentaNYL (PF) 50 MCG/ML 2 ML AMP ONE (07:52)
[2023-08-17] MEDS ORDERED: KETOROLAC 15 MG/ML 1 ML VIAL ONE (07:52)
[2023-08-17] MEDS ORDERED: LANOLIN CREAM 5 GM TUBE TOPICAL PRN (08:41)
[2023-08-17] MEDS ORDERED: diphenhydrAMINE 50 MG/ML 1 ML VIAL IVP PRN ×2 (08:41)
[2023-08-17] MEDS ORDERED: diphenhydrAMINE 25 MG CAP PO PRN (08:41)
[2023-08-17] MEDS ORDERED: ONDANSETRON 4 MG/2 ML VIAL IVP PRN (08:41)
[2023-08-17] MEDS ORDERED: diphenhydrAMINE 50 MG CAP PO PRN (08:41)
[2023-08-17] MEDS ORDERED: SIMETHICONE 80 MG CHEWABLE PO PRN (08:41)
[2023-08-17] MEDS ORDERED: ZOLPIDEM 5 MG TAB PO PRN (08:41)
[2023-08-17] MEDS ORDERED: METOCLOPRAMIDE 5 MG/ML 2 ML VIAL IVP PRN (08:41)
[2023-08-17] MEDS ORDERED: NALOXONE 0.4 MG/ML 1 ML VIAL IV PRN ×2 (08:41→13:24)
[2023-08-17] MEDS ORDERED: OXYTOCIN 30 UNITS/500 ML NS 30 UNIT in SALINE 1 500ML.BAG IV SCH (08:45)
[2023-08-17] MEDS: OXYTOCIN 30 UNITS/500 ML NS 30 UNIT in SALINE 1 500ML.BAG IV SCH (11:25)
[2023-08-17] MEDS ORDERED: NALBUPHINE 10 MG/ML (10 ML MDV) IV PRN (13:24)
[2023-08-17] MEDS: KETOROLAC 15 MG/ML 1 ML VIAL IVP SCH (15:37)
[2023-08-17] MEDS: IBUPROFEN 600 MG TAB PO SCH (16:01)
[2023-08-17] MEDS: ACETAMINOPHEN TAB 500 MG TAB PO SCH (17:24)
[2023-08-17] MEDS: SENNOSIDES-DOCUSATE SODIUM 1 EACH TAB PO SCH (20:29)
[2023-08-18 00:24] VITALS: RESP 16
[2023-08-18 07:18] LABS: Basophils % (A) 0 %; Eosinophils # (A) 0.1 k/uL (0-0.7); Eosinophils % (A) 1 %; HCT 30.2 % (34.0-46.0); HGB 9.9 gm/dL (11.4-16.0); Hypochromasia Slight; Lymphocytes % (A) 11 %; MCH 28.7 pg (25.0-35.0); MCHC 32.8 g/dL (31.0-37.0); MCV 87.3 fL (80.0-100.0); Mean Platelet Volume 9.4; Monocytes # (A) 0.5 k/uL (0-1.0); Monocytes % (A) 6 %; Neutrophils # (A) 7.2 k/uL (1.3-7.7); Neutrophils % (A) 80 %; Platelet Count 191 k/uL (150-450); RBC 3.45 m/uL (3.80-5.40); RDW 14.2 % (11.5-15.5)
--- NOTE | 2023-08-18 10:33 | P.PN ---
Progress Note - Text Progress Note Date: 08/18/23 Postoperative day 1 status post section under spinal anesthesia, and intrathecal morphine given for postoperative analgesia, patient doing well, there is no anesthesia related complications, Patient had no headache, vital signs stable , Assessment and plan= postop day 1 status post , doing well there is no anesthesia related complication.
--- NOTE | 2023-08-18 12:20 | P.HPOB ---
History of Present Illness H&P Date: 08/17/23 Chief Complaint: repeat low transverse with TL 38 year old presents at 39 weeks for repeat low transverse with tubal ligation Review of Systems All systems: negative Constitutional: Denies chills, Denies fever Eyes: denies blurred vision, denies pain Ears, nose, mouth and throat: Denies headache, Denies sore throat Cardiovascular: Denies chest pain, Denies shortness of breath Respiratory: Denies cough Gastrointestinal: Denies abdominal pain, Denies diarrhea, Denies nausea, Denies vomiting Genitourinary: Denies dysuria, Denies hematuria Musculoskeletal: Denies myalgias Integumentary: Denies pruritus, Denies rash Neurological: Denies numbness, Denies weakness Psychiatric: Denies anxiety, Denies depression Endocrine: Denies fatigue, Denies weight change Past Medical History Past Medical History: GERD/Reflux Additional Past Medical History / Comment(s): anemia History of Any Multi-Drug Resistant Organisms: None Reported Past Surgical History: Section, Cholecystectomy, Ear Surgery, Orthopedic Surgery, Tonsillectomy Additional Past Surgical History / Comment(s): TUBES IN EARS, C/S x4, right hand surg. Past Anesthesia/Blood Transfusion Reactions: Previous Problems w/ Anesthesia, Family History of Problems w/ Anesthesia Additional Past Anesthesia/Blood Transfusion Reaction / Comment(s): last epidur al didn't work on right side so could feel everything, dad woke up during a surgery Past Psychological History: No Psychological Hx Reported Additional Psychological History / Comment(s): with procedures Smoking Status: Former smoker, Vaper Past Alcohol Use History: None Reported Additional Past Alcohol Use History / Comment(s): STARTED SMOKING AGE 18,(2002) used to vape but not anymore Past Drug Use History: None Reported Additional Drug Use History / Comment(s): instructed to hold 24 hrs prior to procedure - Past Family History Mother Family Medical History: No Reported History Medications and Allergies Home Medications Medication Instructions Recorded Confirmed Type Aspirin [Adult Low Dose Aspirin EC] 81 mg PO DAILY 12/02/21 08/17/23 History Vit No.180/Iron/Folic 1 tab PO DAILY 12/02/21 08/17/23 History [ Plus Tablet] Acetaminophen [Tylenol] 325 mg PO DIRECTED PRN 08/12/23 08/17/23 History Allergies Allergy/AdvReac Type Severity Reaction Status Date / Time meperidine [From Demerol] AdvReac Nausea & Verified 08/12/23 15:48 Vomiting Exam Osteopathic Statement: *. No significant issues noted on an osteopathic structural exam other than those noted in the History and Physical/Consult. Vital Signs Temp Pulse Resp BP Pulse Ox 08/18/23 08:00 98.0 F 85 16 112/68 100 08/17/23 23:57 98 F 67 16 110/75 96 08/17/23 20:00 98 F 64 18 107/67 96 08/17/23 17:56 99 08/17/23 17:54 16 08/17/23 16:24 16 99 08/17/23 15:58 97.8 F 73 16 120/65 99 08/17/23 14:24 99 Intake and Output 08/17/23 08/18/23 08/18/23 22:59 06:59 14:59 Intake Total 600 600 Output Total 500 500 Balance 100 100 Intake: Oral 600 600 Output: Urine 500 500 Uretheral (Cam) 250 Heart: Regular rate and rhythm Lungs: Clear to auscultation bilaterally Abdomen: Soft, nontender Extremities: Negative Homans sign Results Result Diagrams: 08/18/23 06:17 Abnormal Lab Results - Last 24 Hours (Table) 08/18/23 Range/Units 06:17 RBC 3.45 L (3.80-5.40) m/uL Hgb 9.9 L (11.4-16.0) gm/dL Hct 30.2 L (34.0-46.0) % Assessment and Plan (1) Previous section Current Visit: No Status: Acute Code(s): Z98.891 - HISTORY OF UTERINE SCAR FROM PREVIOUS SURGERY SNOMED Code(s): 182216728 (2) 39 weeks gestation of Current Visit: No Status: Acute Code(s): Z3A.39 - 39 WEEKS GESTATION OF SNOMED Code(s): 29138872 (3) Family planning Current Visit: Yes Status: Acute Code(s): Z30.09 - ENCOUNTER FOR OTH GENERAL CNSL AND ADVICE ON CONTRACEPTION SNOMED Code(s): 504527744 Plan: 1. Repeat low transverse with tubal ligation
--- NOTE | 2023-08-18 12:22 | P.OP ---
Date of Procedure: 08/17/23 Preoperative Diagnosis: 1. at 39 weeks 2. previous 3. family planning Postoperative Diagnosis: same Procedure(s) Performed: Repeat low transverse with tubal ligation Anesthesia: spinal Surgeon: Valeria Rivera Lace Tearing Supervisor #1: Rosario Albarran Estimated Blood Loss (ml): 323 IV fluids (ml): 900 Urine output (ml): 50 Pathology: other (segments of bilateral fallopian tubes) Condition: stable Disposition: PACU Operative Findings: Uterus, tubes, ovaries. Viable male, Apgars 8, 9, weight 7 lbs. 8 oz. Description of Procedure: Patient was taken to the operating room where spinal anesthesia was found be adequate. She was prepped and draped in normal sterile fashion in dorsal supine position with a leftward tilt. Pfannenstiel skin incision was made the scalpel and carried through to the underlying layer of fascia with the scalpel. Fascia was incised in midline and carried bilaterally with the Burkett scissors. The superior aspect of the fascial incision was grasped with Willy clamps elevated and the underlying rectus muscles dissected off with the Burkett's. Attention was then turned to inferior aspect of same incision which in a similar fashion was grasped tented up and the underlying rectus muscles dissected off with the Burkett's. The rectus muscles were the midline and the peritoneum was identified tented up and entered sharply with the scalpel. The incision was extended superiorly and inferiorly with good visualization of the bladder. The bladder blade was inserted and the vesicouterine peritoneum was incised the Metzenbaums then carried bilaterally and bladder flap created digitally. A low transverse incision was then made on the uterus with the scalpel. This was carried bilaterally and digital manner. 's head delivered atraumatically, nose and mouth bulb suctioned, cord clamped and cut, handed off to waiting nurses. Apgars 8,9, weight 7 lbs. 8 oz. Placenta delivered manually, intact with three-vessel cord. The uterus is exteriorized and cleared of all clots and debris. The uterine incision was closed with 0 Vicryl in a running locked fashion. Second layer of the same sutures used in imbricating fashion to obtain excellent hemostasis. Both ovaries and tubes appeared normal. The right fallopian tube was grasped with hemostat and a window was made in the mesosalpinx with the Bovie. The right fallopian tube was doubly ligated a segment was removed and the pedicles were cauterized with the Bovie. The left fallopian tube was grasped with a hemostat and a window was made in the mesosalpinx with the Bovie. The left fallopian tube was doubly ligated and a segment was removed and the pedicles were cauterized with the Bovie. The uterus was placed back into the abdomen. The peritoneum was reapproximated using 2-0 Vicryl in a running fashion. The fascia was reapproximated using 0 Vicryl in a running fashion. The subcutaneous tissues closed with 3-0 Vicryl running fashion. The skin was closed timothy. Patient tolerated the procedure well, sponge and instrument counts were correct times 2 and she was taken to the recovery room in stable condition.
--- NOTE | 2023-08-18 12:23 | P.PNOBGPC ---
Subjective - Subjective Principal diagnosis: Status post repeat low transverse with tubal ligation Interval history: Patient seen and examined. Denies nausea, vomiting, chest pain, shortness of breath or calf pain. Patient reports: Reports appetite normal, Reports voiding normally, Reports pain well controlled, Reports ambulating normally [place]: doing well Objective - Vital Signs Latest vital signs: Vital Signs Temp Pulse Resp BP Pulse Ox 08/18/23 08:00 98.0 F 85 16 112/68 100 08/17/23 23:57 98 F 67 16 110/75 96 08/17/23 20:00 98 F 64 18 107/67 96 08/17/23 17:56 99 08/17/23 17:54 16 08/17/23 16:24 16 99 08/17/23 15:58 97.8 F 73 16 120/65 99 08/17/23 14:24 99 Intake and Output 08/17/23 08/18/23 08/18/23 22:59 06:59 14:59 Intake Total 600 600 Output Total 500 500 Balance 100 100 Intake: Oral 600 600 Output: Urine 500 500 Uretheral (Cam) 250 - Exam Lungs: bilateral: normal Chest: Normal S1, Normal S2 Extremities: Present: normal Abdomen: Present: normal appearance, soft. Absent: distention, tenderness Incision: Present: normal, dry, intact Uterus: Present: normal, firm - Labs Labs: Abnormal Lab Results - Last 24 Hours (Table) 08/18/23 Range/Units 06:17 RBC 3.45 L (3.80-5.40) m/uL Hgb 9.9 L (11.4-16.0) gm/dL Hct 30.2 L (34.0-46.0) % Assessment and Plan (1) Previous section Current Visit: No Status: Resolved Code(s): Z98.891 - HISTORY OF UTERINE SCAR FROM PREVIOUS SURGERY SNOMED Code(s): 871601368 (2) 39 weeks gestation of Current Visit: No Status: Resolved Code(s): Z3A.39 - 39 WEEKS GESTATION OF SNOMED Code(s): 86501355 (3) Family planning Current Visit: Yes Status: Resolved Code(s): Z30.09 - ENCOUNTER FOR OTH GENERAL CNSL AND ADVICE ON CONTRACEPTION SNOMED Code(s): 907508316 (4) Status post repeat low transverse section Current Visit: No Status: Acute Code(s): Z98.891 - HISTORY OF UTERINE SCAR FROM PREVIOUS SURGERY SNOMED Code(s): 936410699 (5) Status post tubal ligation at time of delivery, current hosp Current Visit: Yes Status: Acute Code(s): O80 - ENCOUNTER FOR FULL-TERM UNCOMPLICATED DELIVERY; Z30.2 - ENCOUNTER FOR STERILIZATION SNOMED Code(s): 53509090672177 Plan: 1. Increase ambulation 2. By mouth pain medication
--- NOTE | 2023-08-19 08:58 | P.DS ---
Providers Date of admission: 08/17/23 06:02 Expected date of discharge: 08/19/23 Attending physician: Valeria Rivera Primary care physician: Stated None Hospital Course: This is a 38-year-old female 8 para 4 at 39-0/7 weeks who underwent a repeat low transverse section with bilateral partial salpingectomy on 08/17/[address] Rivera. Please see history and physical and operative note for details of patient's admission. Patient is doing well now. She is using oxycodone and Tylenol and Motrin for pain. Lochia is decreasing. She has had a bowel movement. Vital signs are stable. Abdomen is soft with positive bowel sounds 4. Incision is clean dry and intact with timothy in place. Extremities show negative Homans. Impression is status post repeat low transverse section with bilateral partial esophagectomy postoperative day #2. Plan is to discharge home today. Routine postoperative and instructions are given. She is advised to follow up with Dr. Rivera in the office in approxim ately 1 week for a postoperative check and in 6 weeks for check. She is advised to call the office if she has any further questions or concerns prior to her appointment time. She will be given a prescription for ibuprofen and oxycodone. She has been counseled regarding opioid use and has signed a consent form. Procedures: Repeat low transverse section with bilateral partial septectomy on 08/17/2023 Patient Condition at Discharge: Stable Plan - Discharge Summary Discharge Rx Participant: Yes New Discharge Prescriptions: New Ibuprofen [Motrin] 600 mg PO Q6H #60 tab oxyCODONE HCL [OxyIR] 5 mg PO Q4HR PRN #12 tab PRN Reason: Pain Scale 4 - 6 Continue Vit No.180/Iron/Folic [ Plus Vitamin-Mineral] 1 tab PO DAILY Acetaminophen [Tylenol] 325 mg PO DIRECTED PRN PRN Reason: Pain Discontinued Aspirin [Adult Low Dose Aspirin EC] 81 mg PO DAILY Discharge Medication List Vit No.180/Iron/Folic [ Plus Vitamin-Mineral] 1 tab PO DAILY 12/02/21 [History] Acetaminophen [Tylenol] 325 mg PO DIRECTED PRN 08/12/23 [History] Ibuprofen [Motrin] 600 mg PO Q6H #60 tab 08/19/23 [Rx] oxyCODONE HCL [OxyIR] 5 mg PO Q4HR PRN #12 tab 08/19/23 [Rx] Follow up Appointment(s)/Referral(s): Valeria Rivera DO [Doctor of Osteopathic Medicine] - 09/23/23 10:00 am (Post Op appointment 08-30-2023 at 01:45pm) Activity/Diet/Wound Care/Special Instructions: Instructions 1. Do not begin any exercise program for 3 weeks. 2. Do not resume sexual relations for 3 weeks or longer if uncomfortable. 3. You may take tub baths or showers at any time. 4. You may use tampons if desired after 3 weeks. 5. Keep the area of episiotomy (stitches) clean and dry. 6. If you are not nursing, wear a good fitting, supportive bra during the day and limit fluid intake for at least 1 week to prevent breast engorgement. 7. Call the office, [phone], within the next week to make appointment for your 6 week checkup if it has not already been made. 8. Report any of the following occurrences to the doctor promptly: a. Heavy, excessive bleeding b. Chills, fever c. Burning or frequency of urination d. Pain or redness and breasts if nursing e. Increasing pain or swelling in episiotomy (stitches). In addition to the above instructions, the following additional should be followed: 1. No heavy lifting or straining (exercising) until after 6 week checkup. 2. Keep abdominal incision clean and dry: You may wear a dressing if more comfortable. 3. Make office appointment for 10 days after going home or as instructed by her doctor. Discharge Disposition: HOME SELF-CARE
[2023-08-19 10:57] VITALS: BP 138/82; PULSE 89; TEMP 98
== END 2023-08-19 15:30 | disposition home or self-care (01) | DRG 785 ==
LOC: 4FBP 06:02
PROVIDERS: ADMIT Obstetrics & Gynecology; ATTEND Obstetrics & Gynecology
PROC: 0UB70ZZ Excision of Bilateral Fallopian Tubes, Open Approach (ICD-10-PCS; principal; 2023-08-17 08:00)
PROC: 10D00Z1 Extraction of Products of Conception, Low, Open Approach (ICD-10-PCS; principal; 2023-08-17 08:00)
DX: O34.211 Maternal care for low transverse scar from previous cesarean delivery (principal); O99.62 Diseases of the digestive system complicating childbirth; K21.9 Gastro-esophageal reflux disease without esophagitis; O99.02 Anemia complicating childbirth; D64.9 Anemia, unspecified; Z28.310 Unvaccinated for COVID-19; Z88.5 Allergy status to narcotic agent; Z87.891 Personal history of nicotine dependence; Z79.82 Long term (current) use of aspirin; Z30.2 Encounter for sterilization; Z3A.39 39 weeks gestation of pregnancy; Z37.0 Single live birth
CPT/HCPCS: 85025; 86850; 86900; 86901; 88302